=== PATIENT | male | born 1965 | race Caucasian/White ===

== ENCOUNTER 2024-03-30 02:31 | Inpatient (IN) ==
--- NOTE | 2024-03-30 02:52 | Emergency Department Note ---
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 Not eating and drinking well with nausea and vomiting. Initially some diarrhea but took Imodium and this is stopped. Does not eat much solid food and history of cancer and states he has had much less oral intake including less of the boost drinks he normally has. Maybe had a little bit of right kidney type pain earlier but that resolved. Went to stand up tonight felt very dizzy but did not fall. Did not syncopized but felt near. Given Zofran and route states maybe not so nauseous but he has not had anything to drink. Lives at home by himself. No numbness or tingling reported. Maybe a bit of mild headache. PAST MEDICAL HISTORY: As noted above MEDICATIONS: Reviewed home medications SOCIAL HISTORY: PHYSICAL EXAM: GENERAL: alert and oriented in no acute distress on stretcher Head: normocephalic and atraumatic EYES: No injection, discharge or icterus. EOMI. NECK: Trachea midline. Supple. ENT: Mucous membranes pink but somewhat tacky and dry with some slight swelling of the left lower jawline. No lingual elevation LUNGS: Airway patent. No retractions. Breath sounds clear with good air entry bilaterally. No stridor HEART: Regular tachycardic rate and rhythm. No chest wall tenderness ABDOMEN: Soft and non-tender, without guarding or rebound. No flank tenderness on exam SKIN: Acyanotic, warm, dry, without rashes EXTREMITIES: Without swelling, tenderness or deformity NEUROLOGICAL: No focal deficits. No aphasia. No facial droop or slurred speech. Normal strength and tone in the extremities. Sensation to gross touch normal. EK bpm sinus tachycardia. No PVC or PAC. No acute ST segment elevation or depression noted with a QTc of 467. EK bpm atrial fibrillation with rapid ventricular response. No acute ST segment elevation or depression. QTc 488. CONTINUOUS CARDIAC MONITORING: was ordered and showed a heart rate of 80s to 120s bpm in normal sinus rhythm/sinus tachycardia to atrial fibrillation 1 view chest x-ray per my interpretation: No evidence of pneumonia, pneumothorax, or free air under the diaphragm. Patient's laboratory studies and imaging reviewed. Differential includes Infection, dehydration, metabolic abnormality, hypo/hyperglycemia, electrolyte disturbance, anemia, hypoxia, cardiac sources, intracerebral event, toxicologic, neurologic, as well as other pathologies. IMPRESSION/MEDICAL DECISION MAKING: Patient's blood pressure low upon arrival as well as some tachycardia. Decreased intake and question dehydration given his GI symptoms and decreased intake. Limited intake due to history of SCC of the soft palate. Patient given some IV fluids here liter of LR and normal saline upon arrival given the hypotension. No fevers but blood cultures were sent. Not currently on active chemo. No fevers reported. No significant abdominal pain but did have a little bit of right flank pain earlier that has resolved and the intervening time. No significant focal hemiplegia or confusion and lower suspicion intracranial hemorrhage but given his comorbidities as well as some dizziness and mild headache will obtain a CT of the head as well as CT abdomen pelvis without contrast. [id number] blood work obtained showing significant hyponatremia of 122. Baseline creatinine appears around 1.1 seems about stable. Respiratory viral panel sent to see if there is component of this to his GI symptoms. No significant chest pain or shortness of breath reported but troponin and EKG were obtained. Blood work without significant leukocytosis and minimal anemia. No significant hyperkalemia noted. Lipase normal and no evidence of hepatitis. CT of the head and abdomen pelvis obtained without evidence of acute intercranial bleed or mass. No evidence of acute free air or severe hydronephrosis or kidney stone. Does incidentally note some pericardial effusion but patient's not having tamponade physiology at this time. Procalcitonin is elevated at 4.4 empirically covered with a dose of Zosyn. Blood cultures have been sent. Repeat EKG from telemetry arrhythmia appears to show atrial fibrillation. Patient states he may have had an arrhythmia before but not on anticoagulants. Do not see documented A-fib at least in our records. Will give vancomycin for broad-spectrum coverage. Given history of radiation does state he has some irritation and maybe a little bit increased pain to his left jaw. Could be source of some infection as well as ulceration provide coverage. Will defer anticoagulation to the hospitalist team. Fairly rate controlled plan will avoid aggressive rate control until we finish fluid resuscitating the patient with possible sepsis. Discussed with him as well as the hospitalist team. Patient did receive a total of 2 L of IV fluid. DIAGNOSIS: Hyponatremia, weakness, gastroenteritis, new onset atrial fibrillation, sepsis DISPOSITION: Hospitalist will evaluate Patient was agreeable with this plan. Critical Care I have personally spent 32 minutes of critical care time in the direct management of this patient. This includes bedside care, interpretation of diagnostic studies, and testing, discussion with consultants, patient, and other required patient management activities. These 32 minutes is in excess of all separately billable procedures. 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) Biopsy 07/15/23 Stomach ulcer Medical History (Updated 03/30/24 @ 04:21 by Sukhi Andino M.D.) Rectal abscess Rectal fistula Hypercholesteremia Hypertension Surgical History (Updated 09/07/23 @ 10:25 by Linda Tse RN) History of surgery Rectal fistual and perianal abscess - required 3 surgeries; History of tooth extraction History of wisdom tooth extraction History of tonsillectomy Family History (Updated 09/07/23 @ 10:28 by Linda Tse, RISHI) Sister Family history of reaction to anesthesia allergic to novacaine--causes irregular heartbeat Mother Pacemaker Chronic anticoagulation Cancer "Female cancer" Father , 86yo Natural with unknown cause Sister Medical history unknown Daughter No problems noted. Social History (Updated 09/07/23 @ 10:32 by Linda Tse RN) Smoking Status: Current every day smoker Tobacco Type: Cigarettes Cigarettes Per Day: 1 PPD x 40yrs; Second Hand Exposure: Yes (father smoked); Do You Dip or Chew Tobacco: No (quit 1981); Hx Alcohol Use: Yes Alcohol type: beer Hx Substance Use: No Preferred Language: Romansh Communication Ability: Effective Visual Impairment: No Limitations Hearing Ability: Normal Stonecutter Required: No Beliefs That Will Affect Care: None marital status: / current occupational status: retired Feels Safe at Home: Yes Diet: Soft Diet Comment: Soft/liquid diet due to dental extractions last week; caffeine: No during the past year weight has: remained stable Assistive Devices: Glasses Allergies Allergies Allergy/AdvReac Type Severity Reaction Status Date / Time pollen extracts Allergy Intermediate ITCHY Verified 03/30/24 02:44 EYES, SNEEZING Poison [place] Extract/Poison Allergy Severe "CAN BE 20 Uncoded 03/30/24 02:44 [place] Extra FEET AWAY AND STILL GET IT"-BLISTERS, HIVES Home Meds Home Medications Medication Instructions Recorded Confirmed atorvastatin 20 mg tablet 20 mg PO QPM 10/27/22 03/30/24 lisinopril 5 mg tablet 5 mg PO QAM 10/27/22 03/30/24 Results & Data (ED) Vital Signs Vital Signs - 24 hr 03/30/24 02:35 03/30/24 02:39 03/30/24 02:42 Temperature 36.5 C Temperature Source Oral Pulse Rate 110 H 109 H Pulse Rate [Apical] 109 H Respiratory Rate 16 19 Respiratory Effort / Characteristics Non-Labored Respiratory Depth Normal Respiratory Pattern Regular Blood Pressure 94/65 L Blood Pressure [Left Arm] 82/62 L Blood Pressure Mean 74 Blood Pressure Mean [Left Arm] 68 Pulse Oximetry 98 100 Oxygen Delivery Method Room Air Room Air Sepsis Recent Fever Within 48 Hours No Sepsis New/Unexplained Change in Mental Status No Sepsis Action Taken by Nursing No Action Required 03/30/24 04:00 03/30/24 05:00 03/30/24 05:15 Temperature Temperature Source Pulse Rate 100 H Pulse Rate [Apical] 104 H 98 H Respiratory Rate 16 20 Respiratory Effort / Characteristics Respiratory Depth Respiratory Pattern Blood Pressure Blood Pressure [Left Arm] 95/68 L 81/62 L Blood Pressure Mean Blood Pressure Mean [Left Arm] 77 68 Pulse Oximetry 100 96 Oxygen Delivery Method Room Air Room Air Sepsis Recent Fever Within 48 Hours Sepsis New/Unexplained Change in Mental Status Sepsis Action Taken by Nursing 03/30/24 05:34 03/30/24 06:00 03/30/24 06:35 Temperature Temperature Source Pulse Rate 101 H Pulse Rate [Apical] 103 H Respiratory Rate 15 Respiratory Effort / Characteristics Respiratory Depth Respiratory Pattern Blood Pressure Blood Pressure [Left Arm] 76/59 L 112/78 Blood Pressure Mean Blood Pressure Mean [Left Arm] 64 89 Pulse Oximetry 97 Oxygen Delivery Method Room Air Sepsis Recent Fever Within 48 Hours Sepsis New/Unexplained Change in Mental Status Sepsis Action Taken by Nursing Laboratory Data 03/30/24 03:08 03/30/24 06:30 Lab Results 0603/30/24 03/30/24 Range/Units 03:00 03:08 03:13 WBC 10.39 (4.8-10.8) K/ul RBC 3.36 L (4.70-6.10) M/uL Hgb 12.3 L (14.0-18.0) g/dl POC Hgb 12.2 L (14.0-18.0) g/dl Hct 33.5 L (42.0-52.0) % POC Hct 36 L (42-52) % MCV 99.7 (80.0-100.0) fL MCH 36.6 H (25.0-34.0) pg MCHC 36.7 H (32.0-36.0) g/dL RDW Std Deviation 39.5 (36.4-46.3) fL RDW Coeff of Linh 10.7 L (11.5-14.5) % Plt Count 256 (130-400) K/uL MPV 10.3 (9.4-12.4) fL Immature Gran % (Auto) 1.1 % Neut % (Auto) 78.7 % Lymph % (Auto) 5.2 % [place] % (Auto) 14.2 % Eos % (Auto) 0.3 % Baso % (Auto) 0.5 % Neut # (Auto) 8.18 H (1.40-6.50) K/uL Lymph # (Auto) 0.54 L (1.20-3.40) K/uL [place] # (Auto) 1.48 H (0.11-0.59) K/uL Eos # (Auto) 0.03 (0.00-0.50) K/uL Baso # (Auto) 0.05 (0.00-0.20) K/uL Immature Gran # (Auto) 0.11 (0.01-0.20) K/uL PT 11.6 (9.0-12.0) Seconds INR 1.1 (0.9-1.1) APTT 27 (21-31) Seconds PTT Ratio 1.0 POC Sodium 121 L (135-144) mmol/L Sodium 122 L (136-145) mmol/L POC Potassium 4.4 (3.3-5.0) mmol/L Potassium 3.9 (3.5-5.1) mmol/L POC Chloride 86 L (101-112) mmol/L Chloride 87 L (98-107) mmol/L Carbon Dioxide 26 (21-32) mmol/L POC Total CO2 27 (24-31) mmol/L Anion Gap 9 (3-11) POC Anion Gap 14.0 L (16-25) mmol/L POC BUN 17 (7-18) mg/dl BUN 15 (6-23) mg/dl Creatinine 1.29 (0.6-1.4) mg/dl POC Creatinine 1.4 H (0.6-1.3) mg/dl Est Cr Clr Drug Dosing 52.7 ml/min Est GFR ( Amer) 69.4 ml/min Est GFR (Non-Af Amer) 59.9 ml/min BUN/Creatinine Ratio 11.6 (10-20) Glucose 155 H (70-99(Fasting)) mg/dl POC Glucose (other) 144 H (70-99) mg/dl Osmolality 259 L (280-300) mOsm/kg Lactate 3.3 H* (0.4-2.0) mmol/L Calcium 9.1 (8.6-10.3) mg/dl POC Ioniz Calcium Edvin 1.00 L (1.12-1.32) mmol/l Magnesium 1.8 (1.7-2.4) mg/dl Total Bilirubin 0.7 (0.2-1.0) mg/dl AST 15 (13-39) U/L ALT 10 (7-52) U/L Alkaline Phosphatase 69 (34-104) U/L Troponin I High Sens 7.2 (0-20) pg/ml Total Protein 6.4 (6.0-8.3) gm/dl Albumin 3.4 (3.4-5.0) gm/dl Globulin 3.0 (2.5-4.0) gm/dl Albumin/Globulin Ratio 1.1 (0.9-2) Lipase 18 (11-82) U/L Procalcitonin 4.41 H (0-0.5) ng/ml TSH 2.942 (0.300-4.500) uIu/ml Urine Color Urine Appearance (Clear) Urine pH (4.5-7.5) Ur Specific [place] (1.000-1.030) Urine Protein (Negative) Urine Glucose (UA) (Negative) Urine Ketones (Negative) Urine Blood (Negative) Urine Nitrite (Negative) Urine Bilirubin (Negative) Urine Urobilinogen (Negative) Ur Leukocyte Esterase (Negative) Urine Osmolality (500-800) mOsm/kg Ur Random Sodium mmol/L Adenovirus (PCR) Not Detected (NotDetected) B. pertussis DNA (PCR) Not Detected (NotDetected) B.parapertussis DNA PCR Not Detected (NotDetected) C. pneumoniae DNA (PCR) Not Detected (NotDetected) Coronavirus OC43 (PCR) Not Detected (NotDetected) Coronavirus HKU1 (PCR) Not Detected (NotDetected) Coronavirus 229E (PCR) Not Detected (NotDetected) SARS-CoV-2 (PCR) Not Detected (NotDetected) Coronavirus NL63 (PCR) Not Detected (NotDetected) Human Metapneumovir PCR Not Detected (NotDetected) Influenza Type A (PCR) Not Detected (NotDetected) Influenza Type B (PCR) Not Detected (NotDetected) M. pneumoniae (PCR) Not Detected (NotDetected) Parainfluenza 1 (PCR) Not Detected (NotDetected) Parainfluenza 2 (PCR) Not Detected (NotDetected) Parainfluenza 3 (PCR) Not Detected (NotDetected) Parainfluenza 4 (PCR) Not Detected (NotDetected) RSV (PCR) Not Detected (NotDetected) Entero/Rhino (PCR) Not Detected (NotDetected) 03/30/24 03/30/24 Range/Units 05:59 06:30 WBC (4.8-10.8) K/ul RBC (4.70-6.10) M/uL Hgb (14.0-18.0) g/dl POC Hgb (14.0-18.0) g/dl Hct (42.0-52.0) % POC Hct (42-52) % MCV (80.0-100.0) fL MCH (25.0-34.0) pg MCHC (32.0-36.0) g/dL RDW Std Deviation (36.4-46.3) fL RDW Coeff of Linh (11.5-14.5) % Plt Count (130-400) K/uL MPV (9.4-12.4) fL Immature Gran % (Auto) % Neut % (Auto) % Lymph % (Auto) % [place] % (Auto) % Eos % (Auto) % Baso % (Auto) % Neut # (Auto) (1.40-6.50) K/uL Lymph # (Auto) (1.20-3.40) K/uL [place] # (Auto) (0.11-0.59) K/uL Eos # (Auto) (0.00-0.50) K/uL Baso # (Auto) (0.00-0.20) K/uL Immature Gran # (Auto) (0.01-0.20) K/uL PT (9.0-12.0) Seconds INR (0.9-1.1) APTT (21-31) Seconds PTT Ratio POC Sodium (135-144) mmol/L Sodium 127 L (136-145) mmol/L POC Potassium (3.3-5.0) mmol/L Potassium (3.5-5.1) mmol/L POC Chloride (101-112) mmol/L Chloride (98-107) mmol/L Carbon Dioxide (21-32) mmol/L POC Total CO2 (24-31) mmol/L Anion Gap (3-11) POC Anion Gap (16-25) mmol/L POC BUN (7-18) mg/dl BUN (6-23) mg/dl Creatinine (0.6-1.4) mg/dl POC Creatinine (0.6-1.3) mg/dl Est Cr Clr Drug Dosing ml/min Est GFR ( Amer) ml/min Est GFR (Non-Af Amer) ml/min BUN/Creatinine Ratio (10-20) Glucose (70-99(Fasting)) mg/dl POC Glucose (other) (70-99) mg/dl Osmolality (280-300) mOsm/kg Lactate 1.9 (0.4-2.0) mmol/L Calcium (8.6-10.3) mg/dl POC Ioniz Calcium Edvin (1.12-1.32) mmol/l Magnesium (1.7-2.4) mg/dl Total Bilirubin (0.2-1.0) mg/dl AST (13-39) U/L ALT (7-52) U/L Alkaline Phosphatase (34-104) U/L Troponin I High Sens (0-20) pg/ml Total Protein (6.0-8.3) gm/dl Albumin (3.4-5.0) gm/dl Globulin (2.5-4.0) gm/dl Albumin/Globulin Ratio (0.9-2) Lipase (11-82) U/L Procalcitonin (0-0.5) ng/ml TSH (0.300-4.500) uIu/ml Urine Color Yellow Urine Appearance Clear (Clear) Urine pH 6.0 (4.5-7.5) Ur Specific [place] 1.009 (1.000-1.030) Urine Protein Negative (Negative) Urine Glucose (UA) Negative (Negative) Urine Ketones Negative (Negative) Urine Blood Negative (Negative) Urine Nitrite Negative (Negative) Urine Bilirubin Negative (Negative) Urine Urobilinogen Negative (Negative) Ur Leukocyte Esterase Negative (Negative) Urine Osmolality 167 L (500-800) mOsm/kg Ur Random Sodium < 10 mmol/L Adenovirus (PCR) (NotDetected) B. pertussis DNA (PCR) (NotDetected) B.parapertussis DNA PCR (NotDetected) C. pneumoniae DNA (PCR) (NotDetected) Coronavirus OC43 (PCR) (NotDetected) Coronavirus HKU1 (PCR) (NotDetected) Coronavirus 229E (PCR) (NotDetected) SARS-CoV-2 (PCR) (NotDetected) Coronavirus NL63 (PCR) (NotDetected) Human Metapneumovir PCR (NotDetected) Influenza Type A (PCR) (NotDetected) Influenza Type B (PCR) (NotDetected) M. pneumoniae (PCR) (NotDetected) Parainfluenza 1 (PCR) (NotDetected) Parainfluenza 2 (PCR) (NotDetected) Parainfluenza 3 (PCR) (NotDetected) Parainfluenza 4 (PCR) (NotDetected) RSV (PCR) (NotDetected) Entero/Rhino (PCR) (NotDetected) Administered Medications Magnesium Sulfate/Dextrose (Magnesium Sulfate / D5w) 1 gm in 100 mls @ 50 mls/hr IV ONE ONE Stop: 03/30/24 08:18 Last Admin: 03/30/24 06:38 Dose: 50 mls/hr Documented By: BOO Discontinued Medications Moyer Syrup (Moyer Syrup 5 Ml Udp) 5 ml PO ONE STA Stop: 03/30/24 06:04 Last Admin: 03/30/24 06:28 Dose: 5 ml Documented By: BOO Sodium Chloride (Nss) 1,000 mls @ 999 mls/hr IV .Q1H1M STA Stop: 03/30/24 03:47 Last Infusion: 03/30/24 04:10 Dose: Infused Documented By: Admin: 03/30/24 03:04 Dose: 999 mls/hr Documented By: BOO Lactated Ringer's (Lr) 1,000 mls @ 999 mls/hr IV .Q1H1M ONE Stop: 03/30/24 03:47 Last Infusion: 03/30/24 04:43 Dose: Infused Documented By: Admin: 03/30/24 03:04 Dose: 999 mls/hr Documented By: BOO Piperacillin Sod/Tazobactam Sod (Zosyn) 4.5 gm in 100 mls @ 200 mls/hr IV NOW ONE Stop: 03/30/24 04:21 Last Infusion: 03/30/24 04:43 Dose: Infused Documented By: Infusion: 03/30/24 04:38 Dose: Infused Documented By: Admin: 03/30/24 04:10 Dose: 200 mls/hr Documented By: BOO Vancomycin HCl 1,250 mg/ (Sodium Chloride) 525 mls @ 200 mls/hr IV NOW ONE Stop: 03/30/24 06:53 Last Admin: 03/30/24 06:28 Dose: 200 mls/hr Documented By: BOO Digoxin 250 mcg/ Syringe 10 mls @ 2 mls/min IV NOW STA Stop: 03/30/24 04:44 Last Admin: 03/30/24 05:15 Dose: 2 mls/min Documented By: BOO Thiamine HCl 100 mg/ Syringe 10 mls @ 2 mls/min IV NOW STA Stop: 03/30/24 04:44 Last Admin: 03/30/24 05:15 Dose: 2 mls/min Documented By: BOO Lactated Ringer's (Lr) 1,000 mls @ 500 mls/hr IV .Q2H ONE Stop: 03/30/24 06:32 Last Infusion: 03/30/24 05:25 Dose: 500 mls/hr Documented By: Admin: 03/30/24 04:43 Dose: 100 mls/hr Documented By: BOO Vancomycin HCl (Vancomycin Hcl 125 Mg/2.5ml Soln) 125 mg PO ONE STA Stop: 03/30/24 06:04 Last Admin: 03/30/24 06:28 Dose: 125 mg Documented By: BOO Imaging Data Radiologist's Impression: Head CT 03/30/24 02:47 Exam(s): CT HEAD Without Contrast EXAM: CT Head Without Intravenous Contrast CLINICAL HISTORY: Reason for exam: dizzy. TECHNIQUE: Axial computed tomography images of the head/brain without intravenous contrast. CTDI is 35.51 mGy and DLP is 1215.01 mGy-cm. Automated exposure control was utilized for the study. A dose lowering technique was utilized adhering to the principles of ALARA. COMPARISON: No relevant prior studies available. FINDINGS: Brain: Remote ischemic injury of the lennox. Remote ischemic injury of the right thalamus. No hemorrhage. Mild nonspecific white matter changes. No edema. Ventricles: Unremarkable. No ventriculomegaly. Bones/joints: Unremarkable. No acute fracture. Soft tissues: Unremarkable. Sinuses: Unremarkable as visualized. No acute sinusitis. Mastoid air cells: Unremarkable as visualized. No mastoid effusion. IMPRESSION: No evidence of acute intracranial pathology. Electronically signed by: Tiara Rios MD 03/30/24 05:57 AM Discharge Plan Visit Data Chief Complaint: Dehydration Stated Complaint: ILLNESS ED Provider: Sukhi Andino Discharge Problem: Acute hyponatremia, Weakness, Dizziness, Sepsis, A-fib Patient Disposition: Being Evaluated by Hospitalist Forms Stand Alone Forms: [employer] [facility] Prescriptions Prescriptions: No Action atorvastatin 20 mg tablet 20 mg PO QPM lisinopril 5 mg tablet 5 mg PO QAM Referrals Referrals: Mary Kapadia PA-C [Primary Care Provider] -
[2024-03-30] MEDS: LACTATED RINGER'S 1,000 ML IV ONE ×3 (03:04→12:35)
[2024-03-30] MEDS: SODIUM CHLORIDE 0.9% 1,000 ML IV STA (03:04)
[2024-03-30 03:27] LABS: iSTAT Creatinine 1.4 mg/dl (0.6-1.3); iSTAT Hemoglobin 12.2 g/dl (14.0-18.0); iSTAT Potassium 4.4 mmol/L (3.3-5.0)
[2024-03-30 03:31] LABS: Basophils # (auto) 0.05 K/uL (0.00-0.20); Basophils % (auto) 0.5 %; Eosinophils # (auto) 0.03 K/uL (0.00-0.50); Eosinophils % (auto) 0.3 %; Hematocrit (blood only) 33.5 % (42.0-52.0); Hemoglobin 12.3 g/dl (14.0-18.0); Immature Granulocytes # (auto) 0.11 K/uL (0.01-0.20); Immature Granulocytes % (auto) 1.1 %; Lymphocytes # (auto) 0.54 K/uL (1.20-3.40); Lymphocytes % (auto) 5.2 %; Mean Corpuscular Hemoglobin 36.6 pg (25.0-34.0); Mean Corpuscular Hgb Conc 36.7 g/dL (32.0-36.0); Mean Corpuscular Volume 99.7 fL (80.0-100.0); Mean Platelet Volume 10.3 fL (9.4-12.4); Monocytes # (auto) 1.48 K/uL (0.11-0.59); Monocytes % (auto) 14.2 %; Neutrophils # (auto) 8.18 K/uL (1.40-6.50); Neutrophils % (auto) 78.7 %; Platelet Count 256 K/uL (130-400); RDW Coefficient of Variation 10.7 % (11.5-14.5); RDW Standard Deviation 39.5 fL (36.4-46.3); Red Blood Count 3.36 M/uL (4.70-6.10); White Blood Count 10.39 K/ul (4.8-10.8)
[2024-03-30 03:41] LABS: Albumin Globulin Ratio 1.1 (0.9-2); Albumin Level 3.4 gm/dl (3.4-5.0); BUN Creatinine Ratio 11.6 (10-20); Bilirubin,Total 0.7 mg/dl (0.2-1.0); Calcium 9.1 mg/dl (8.6-10.3); Creatinine Clr Calc Pharmacy 52.7 ml/min; Est GFR (African American) 69.4 ml/min; Est GFR (Non-African American) 59.9 ml/min; Potassium 3.9 mmol/L (3.5-5.1); Total Protein 6.4 gm/dl (6.0-8.3)
[2024-03-30 03:47] LABS: Troponin I High Sensitivity 7.2 pg/ml (0-20)
[2024-03-30 03:50] LABS: INR 1.1 (0.9-1.1); Prothrombin Time 11.6 Seconds (9.0-12.0)
[2024-03-30 04:10] LABS: Adenovirus PCR Not Detected (NotDetected); Bordetella parapertussis PCR Not Detected (NotDetected); Bordetella pertussis PCR Not Detected (NotDetected); Chlamydia pneumoniae PCR Not Detected (NotDetected); Coronavirus 229E PCR Not Detected (NotDetected); Coronavirus CoV-2 (COVID19)PCR Not Detected (NotDetected); Coronavirus HKU1 PCR Not Detected (NotDetected); Coronavirus NL63 PCR Not Detected (NotDetected); Coronavirus OC43PCR Not Detected (NotDetected); Human Metapneumovirus PCR Not Detected (NotDetected); Influenza A PCR Not Detected (NotDetected); Influenza B PCR Not Detected (NotDetected); Mycoplasma pneumoniae PCR Not Detected (NotDetected); Parainfluenza Virus 1 PCR Not Detected (NotDetected); Parainfluenza Virus 2 PCR Not Detected (NotDetected); Parainfluenza Virus 3 PCR Not Detected (NotDetected); Parainfluenza Virus 4 PCR Not Detected (NotDetected); Respiratory Syncytial VirusPCR Not Detected (NotDetected); Rhinovirus/Enterovirus PCR Not Detected (NotDetected)
[2024-03-30] MEDS: PIPERACILLIN/TAZOBACTAM 4.5 GM/100 ML BAG IV ONE (04:10)
[2024-03-30] MEDS ORDERED: VANCOMYCIN CONSULT ACTIVE PRN (04:16)
[2024-03-30 04:47] LABS: Magnesium 1.8 mg/dl (1.7-2.4)
[2024-03-30 04:50] LABS: Partial Thromboplastin Time 27 Seconds (21-31)
[2024-03-30 05:03] LABS: Thyroid Stimulating Hormone 2.942 uIu/ml (0.300-4.500)
[2024-03-30] MEDS: THIAMINE HCL 100 MG in SYRINGE 9 ML IV STA (05:15)
[2024-03-30] MEDS: DIGOXIN 250 MCG in SYRINGE 9 ML IV STA (05:15)
--- NOTE | 2024-03-30 05:58 | CT Scan Report ---
Exam(s): CT HEAD Without Contrast EXAM: CT Head Without Intravenous Contrast CLINICAL HISTORY: Reason for exam: dizzy. TECHNIQUE: Axial computed tomography images of the head/brain without intravenous contrast. CTDI is 35.51 mGy and DLP is 1215.01 mGy-cm. Automated exposure control was utilized for the study. A dose lowering technique was utilized adhering to the principles of ALARA. COMPARISON: No relevant prior studies available. FINDINGS: Brain: Remote ischemic injury of the lennox. Remote ischemic injury of the right thalamus. No hemorrhage. Mild nonspecific white matter changes. No edema. Ventricles: Unremarkable. No ventriculomegaly. Bones/joints: Unremarkable. No acute fracture. Soft tissues: Unremarkable. Sinuses: Unremarkable as visualized. No acute sinusitis. Mastoid air cells: Unremarkable as visualized. No mastoid effusion. IMPRESSION: No evidence of acute intracranial pathology. Electronically signed by: Tiara Rios MD 03/30/24 05:57 AM
--- NOTE | 2024-03-30 06:03 | History & Physical Report ---
Date of Service March 30, 2024 Assessment & Plan (1) Severe sepsis: Plan: SIRS plus ARF plus lactic acidosis Possible sources: Intra-abdominal Diarrhea rule out C. difficile Oral cavity given worsening left jaw pain complaints, hx oropharyngeal cancer ongoing chemoradiation New onset A-fib secondary to illness Acute on chronic hyponatremia secondary to illness, alcohol abuse contributory hyperlipidemia, on statin Rx history of anal fistula/rectal abscess as per records chronic anemia, hemoglobin better than baseline secondary to hemoconcentration Hyperglycemia rule out DM past tobacco abuse PCU CS, Daptomycin, Zosyn Follow CT abdomen pelvis result CT soft tissue neck RE left jaw pain N.p.o. until CT results available Stool C. difficile, oral vancomycin 1 dose for presumptive C. difficile given sepsis criteria Baseline UA, monitor creatinine, lactic acid response to IVF Appropriate to hold home lisinopril for now given hypotension and kidney dysfunction Digoxin 1 dose now for new onset A-fib given hypotension TTE, Cardiology consult Re: New onset A-fib Hyponatremia workup AD S at risk protocol, DT precautions Check hemoglobin A1c DVT prophylaxis. SCDs until CT results available Full code Text document was generated using Pl[employer] voice recognition software. It may contain grammatical or spelling errors. Kindly contact undersigned for clarification of any documentation item in question. History of Present Illness Chief Complaint: Weakness, diarrhea Primary Care Provider: Mary Kapadia PA-C History obtained from patient and records. Medical history significant for hypertension, hyperlipidemia, history of anal fistula/rectal abscess, oropharyngeal cancer ongoing chemoradiation, chronic hyponatremia, chronic anemia (baseline hemoglobin of 10), alcohol abuse, past tobacco abuse. 10-day history of not feeling well, feeling sick, achy abdominal pain with watery diarrhea. Increased left jaw pain more than usual. No chest pain, no SOB, no cough symptoms. Near syncope at home. Lowest SBP of 70s documented at the ER. Rapid A-fib later noted on the monitor. 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 Allergies Allergy/AdvReac Type Severity Reaction Status Date / Time pollen extracts Allergy Intermediate ITCHY Verified 03/30/24 02:44 EYES, SNEEZING Poison [place] Extract/Poison Allergy Severe "CAN BE 20 Uncoded 03/30/24 02:44 [place] Extra FEET AWAY AND STILL GET IT"-BLISTERS, HIVES Home Medications Medication Instructions Recorded Confirmed Type atorvastatin 20 mg tablet 20 mg PO QPM 10/27/22 03/30/24 History lisinopril 5 mg tablet 5 mg PO QAM 10/27/22 03/30/24 History Past Med/Surg History Problem List (Updated 03/30/24 @ 09:18 by Eduard Patterson DO) Volume depletion Near syncope Paroxysmal atrial fibrillation Pericardial effusion Severe sepsis A-fib (Acute) Sepsis (Acute) Dizziness (Acute) Weakness (Acute) Acute hyponatremia (Acute) 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 Required: No Beliefs That Will Affect Care: None marital status: / current occupational status: retired Feels Safe at Home: Yes Diet: Soft Diet Comment: Soft/liquid diet due to dental extractions last week; caffeine: No during the past year weight has: remained stable Assistive Devices: Glasses Review of Systems Review of Systems: As per HPI, all other systems reviewed and negative Physical Exam Physical Exam: GENERAL: Slightly uncomfortable, chronically ill, no respiratory distress SKIN: Pallor, warm HEENT: Pale palpebral conjunctivae, no ptosis, dry buccal mucosa, tenderness left jaw NECK : Supple, no tenderness CHEST : Decreased breath sounds, no tenderness HEART : Irregular, no obvious murmurs ABDOMEN: Some distention, minimal hypogastric tenderness EXTREMITIES : No LE swelling/tenderness, no other conspicuous deformities noted NEUROLOGIC : Coherent, no facial asymmetry, no other gross focality Results & Data Results & Data Vital Signs (Past 12 Hours) Vital Signs Temp Pulse Pulse Resp BP BP Pulse Ox 03/30/24 05:34 76/59 L 03/30/24 05:15 100 H 03/30/24 05:00 98 H 20 81/62 L 96 03/30/24 04:00 104 H 16 95/68 L 100 03/30/24 02:42 109 H 03/30/24 02:39 109 H 19 82/62 L 100 03/30/24 02:35 36.5 C 110 H 16 94/65 L 98 O2 Del Method 03/30/24 05:34 03/30/24 05:15 03/30/24 05:00 Room Air 03/30/24 04:00 Room Air 03/30/24 02:42 03/30/24 02:39 Room Air 03/30/24 02:35 Room Air Laboratory Results Laboratory Results WBC 10.39 K/ul (4.8-10.8) 03/30/24 03:08 RBC 3.36 M/uL (4.70-6.10) L 03/30/24 03:08 Hgb 12.3 g/dl (14.0-18.0) L 03/30/24 03:08 POC Hgb 12.2 g/dl (14.0-18.0) L 03/30/24 03:13 Hct 33.5 % (42.0-52.0) L 03/30/24 03:08 POC Hct 36 % (42-52) L 03/30/24 03:13 MCV 99.7 fL (80.0-100.0) 03/30/24 03:08 MCH 36.6 pg (25.0-34.0) H 03/30/24 03:08 MCHC 36.7 g/dL (32.0-36.0) H 03/30/24 03:08 RDW Std Deviation 39.5 fL (36.4-46.3) 03/30/24 03:08 RDW Coeff of Linh 10.7 % (11.5-14.5) L 03/30/24 03:08 Plt Count 256 K/uL (130-400) 03/30/24 03:08 MPV 10.3 fL (9.4-12.4) 03/30/24 03:08 Immature Gran % (Auto) 1.1 % 03/30/24 03:08 Neut % (Auto) 78.7 % 03/30/24 03:08 Lymph % (Auto) 5.2 % 03/30/24 03:08 [place] % (Auto) 14.2 % 03/30/24 03:08 Eos % (Auto) 0.3 % 03/30/24 03:08 Baso % (Auto) 0.5 % 03/30/24 03:08 Neut # (Auto) 8.18 K/uL (1.40-6.50) H 03/30/24 03:08 Lymph # (Auto) 0.54 K/uL (1.20-3.40) L 03/30/24 03:08 [place] # (Auto) 1.48 K/uL (0.11-0.59) H 03/30/24 03:08 Eos # (Auto) 0.03 K/uL (0.00-0.50) 03/30/24 03:08 Baso # (Auto) 0.05 K/uL (0.00-0.20) 03/30/24 03:08 Immature Gran # (Auto) 0.11 K/uL (0.01-0.20) 03/30/24 03:08 PT 11.6 Seconds (9.0-12.0) 03/30/24 03:08 INR 1.1 (0.9-1.1) 03/30/24 03:08 APTT 27 Seconds (21-31) 03/30/24 03:08 PTT Ratio 1.0 03/30/24 03:08 POC Sodium 121 mmol/L (135-144) L 03/30/24 03:13 Sodium 122 mmol/L (136-145) L 03/30/24 03:08 POC Potassium 4.4 mmol/L (3.3-5.0) 03/30/24 03:13 Potassium 3.9 mmol/L (3.5-5.1) 03/30/24 03:08 POC Chloride 86 mmol/L (101-112) L 03/30/24 03:13 Chloride 87 mmol/L (98-107) L 03/30/24 03:08 Carbon Dioxide 26 mmol/L (21-32) 03/30/24 03:08 POC Total CO2 27 mmol/L (24-31) 03/30/24 03:13 Anion Gap 9 (3-11) 03/30/24 03:08 POC Anion Gap 14.0 mmol/L (16-25) L 03/30/24 03:13 POC BUN 17 mg/dl (7-18) 03/30/24 03:13 BUN 15 mg/dl (6-23) 03/30/24 03:08 Creatinine 1.29 mg/dl (0.6-1.4) 03/30/24 03:08 POC Creatinine 1.4 mg/dl (0.6-1.3) H 03/30/24 03:13 Est Cr Clr Drug Dosing 52.7 ml/min 03/30/24 03:08 Est GFR ( Amer) 69.4 ml/min 03/30/24 03:08 Est GFR (Non-Af Amer) 59.9 ml/min 03/30/24 03:08 BUN/Creatinine Ratio 11.6 (10-20) 03/30/24 03:08 Glucose 155 mg/dl (70-99(Fasting)) H 03/30/24 03:08 POC Glucose (other) 144 mg/dl (70-99) H 03/30/24 03:13 Osmolality 259 mOsm/kg (280-300) L 03/30/24 03:08 Lactate 3.3 mmol/L (0.4-2.0) H* 03/30/24 03:08 Calcium 9.1 mg/dl (8.6-10.3) 03/30/24 03:08 POC Ioniz Calcium Edvin 1.00 mmol/l (1.12-1.32) L 03/30/24 03:13 Magnesium 1.8 mg/dl (1.7-2.4) 03/30/24 03:08 Total Bilirubin 0.7 mg/dl (0.2-1.0) 03/30/24 03:08 AST 15 U/L (13-39) 03/30/24 03:08 ALT 10 U/L (7-52) 03/30/24 03:08 Alkaline Phosphatase 69 U/L (34-104) 03/30/24 03:08 Troponin I High Sens 7.2 pg/ml (0-20) 03/30/24 03:08 Total Protein 6.4 gm/dl (6.0-8.3) 03/30/24 03:08 Albumin 3.4 gm/dl (3.4-5.0) 03/30/24 03:08 Globulin 3.0 gm/dl (2.5-4.0) 03/30/24 03:08 Albumin/Globulin Ratio 1.1 (0.9-2) 03/30/24 03:08 Lipase 18 U/L (11-82) 03/30/24 03:08 Procalcitonin 4.41 ng/ml (0-0.5) H 03/30/24 03:08 TSH 2.942 uIu/ml (0.300-4.500) 03/30/24 03:08 Adenovirus (PCR) Not Detected (NotDetected) 03/30/24 03:00 B. pertussis DNA (PCR) Not Detected (NotDetected) 03/30/24 03:00 B.parapertussis DNA PCR Not Detected (NotDetected) 03/30/24 03:00 C. pneumoniae DNA (PCR) Not Detected (NotDetected) 03/30/24 03:00 Coronavirus OC43 (PCR) Not Detected (NotDetected) 03/30/24 03:00 Coronavirus HKU1 (PCR) Not Detected (NotDetected) 03/30/24 03:00 Coronavirus 229E (PCR) Not Detected (NotDetected) 03/30/24 03:00 SARS-CoV-2 (PCR) Not Detected (NotDetected) 03/30/24 03:00 Coronavirus NL63 (PCR) Not Detected (NotDetected) 03/30/24 03:00 Human Metapneumovir PCR Not Detected (NotDetected) 03/30/24 03:00 Influenza Type A (PCR) Not Detected (NotDetected) 03/30/24 03:00 Influenza Type B (PCR) Not Detected (NotDetected) 03/30/24 03:00 M. pneumoniae (PCR) Not Detected (NotDetected) 03/30/24 03:00 Parainfluenza 1 (PCR) Not Detected (NotDetected) 03/30/24 03:00 Parainfluenza 2 (PCR) Not Detected (NotDetected) 03/30/24 03:00 Parainfluenza 3 (PCR) Not Detected (NotDetected) 03/30/24 03:00 Parainfluenza 4 (PCR) Not Detected (NotDetected) 03/30/24 03:00 RSV (PCR) Not Detected (NotDetected) 03/30/24 03:00 Entero/Rhino (PCR) Not Detected (NotDetected) 03/30/24 03:[address] 03/30/24 02:47 Exam(s): CT HEAD Without Contrast EXAM: CT Head Without Intravenous Contrast CLINICAL HISTORY: Reason for exam: dizzy. TECHNIQUE: Axial computed tomography images of the head/brain without intravenous contrast. CTDI is 35.51 mGy and DLP is 1215.01 mGy-cm. Automated exposure control was utilized for the study. A dose lowering technique was utilized adhering to the principles of ALARA. COMPARISON: No relevant prior studies available. FINDINGS: Brain: Remote ischemic injury of the lennox. Remote ischemic injury of the right thalamus. No hemorrhage. Mild nonspecific white matter changes. No edema. Ventricles: Unremarkable. No ventriculomegaly. Bones/joints: Unremarkable. No acute fracture. Soft tissues: Unremarkable. Sinuses: Unremarkable as visualized. No acute sinusitis. Mastoid air cells: Unremarkable as visualized. No mastoid effusion. IMPRESSION: No evidence of acute intracranial pathology. Electronically signed by: Tiara Rios MD 03/30/24 05:57 AM Diagnostic Findings Chest x-ray as per my interpretation cardiomegaly EKG as per my interpretation : Rate 105, A-fib, normal axis, nonspecific T wave abnormalities, low voltage, PVCs
[2024-03-30] MEDS ORDERED: PROMETHAZINE HCL 6.25 MG in SODIUM CHLORIDE 0.9% 50 ML IV PRN (06:19)
[2024-03-30] MEDS ORDERED: LORazepam 1 MG in SYRINGE 0.5 ML IV PRN (06:19)
[2024-03-30] MEDS ORDERED: oxyCODONE HCL IR 5 MG TAB (IMMEDIATE RELEASE) PO PRN (06:19)
[2024-03-30 06:21] LABS: Appearance Urine Clear (Clear); Bilirubin Urine Negative (Negative); Blood Urine Negative (Negative); Color Urine Yellow; Glucose Urine UA Negative (Negative); Ketones Urine Negative (Negative); Leukocyte Esterase Urine Negative (Negative); Nitrite Urine Negative (Negative); Protein Urine Negative (Negative); Specific Gravity Urine 1.009 (1.000-1.030); Urobilinogen Urine Negative (Negative)
[2024-03-30] MEDS: VANCOMYCIN HCL 125 MG/2.5ML SOLN PO STA (06:28)
[2024-03-30] MEDS: VANCOMYCIN HCL 1,250 MG in SODIUM CHLORIDE 0.9% 500 ML IV ONE (06:28)
[2024-03-30] MEDS: CHERRY SYRUP 5 ML UDP PO STA (06:28)
[2024-03-30] MEDS: MAGNESIUM SULFATE / D5W 1 GM/100 ML BAG IV ONE (06:38)
--- NOTE | 2024-03-30 07:06 | CT Scan Report ---
Exam(s): CT ABDOMEN + PELVIS Without Contrast EXAM: CT Abdomen and Pelvis Without Intravenous Contrast CLINICAL HISTORY: Reason for exam: weak, R flank pain, nausea. TECHNIQUE: Axial computed tomography images of the abdomen and pelvis without intravenous contrast. CTDI is 35.51 mGy and DLP is 1215.01 mGy-cm. Automated exposure control was utilized for the study. A dose lowering technique was utilized adhering to the principles of ALARA. COMPARISON: No relevant prior studies available. FINDINGS: Lung bases: Segmental size region of atelectasis/infiltrate within the bilateral lower lobes greater on the left side. Pleural space: There is small to moderate left pleural effusion. Heart: There is moderate to large pericardial effusion. ABDOMEN: Liver: Unremarkable. Gallbladder and bile ducts: Unremarkable. No calcified stones. No ductal dilation. Pancreas: Unremarkable. No ductal dilation. Spleen: Unremarkable. No splenomegaly. Adrenals: Unremarkable. No mass. Kidneys and ureters: Unremarkable. No obstructing stones. No hydronephrosis. Stomach and bowel: There apparent postsurgical changes to the distal colon. No obstruction. No mucosal thickening. PELVIS: Appendix: No findings to suggest acute appendicitis. Bladder: Unremarkable. No stones. Reproductive: Unremarkable as visualized. ABDOMEN and PELVIS: Intraperitoneal space: Unremarkable. No free air. No significant fluid collection. Bones/joints: There are degenerative changes to the osseous structures. No acute fracture. No dislocation. Soft tissues: Unremarkable. Vasculature: Unremarkable. No abdominal aortic aneurysm. Lymph nodes: Unremarkable. No enlarged lymph nodes. IMPRESSION: Pericardial effusion and left pleural effusion. Communications: Verify Receipt Electronically signed by: Avila Pyle MD 03/30/24 07:06 AM
--- NOTE | 2024-03-30 07:59 | XRay Report ---
SINGLE VIEW CHEST CLINICAL HISTORY: Generalized weakness. Nausea and dizziness. FINDINGS: An AP, portable, upright chest radiograph is compared to study dated 10/27/2022. Correlation is made with abdominal CT performed the same day 03/30/2024. The cardiac silhouette is enlarged. The pulmonary vasculature is noncongested. There are small pleural effusions with dependent atelectasis. No airspace consolidation is seen typical for pneumonia. No pneumothorax is seen. The bony thorax is grossly intact. IMPRESSION: 1. Enlarged cardiac silhouette. This corresponds to a pericardial effusion when correlated with today 's CT scan. The pericardium appears thickened on CT. Correlate clinically for evidence of pericarditi s. 2. Small pleural effusions with dependent atelectasis. ACT 112: Negative or not required by law. Electronically signed by: Paul Mariano M.D. 03/30/2024 7:58 AM
[2024-03-30 08:06] LABS: Estimated Average Glucose 111 mg/dl; Hemoglobin A1C 5.5 % (4.5-5.6)
--- NOTE | 2024-03-30 09:13 | CT Scan Report ---
CT SCAN OF THE NECK WITHOUT IV CONTRAST CLINICAL HISTORY: Left-sided jaw pain COMPARISON STUDY: CT of the neck dated 07/27/2023. TECHNIQUE: Unenhanced CT scan of the soft tissues of the neck was performed from the skull base to th e upper chest. Images are reviewed in the axial, sagittal, and coronal planes. IV contrast was not a dministered as per the referring clinician. Note that the examination was performed and significantly suboptimal fashion without IV contrast. A dose lowering technique was utilized adhering to the prin ciples of ALARA. FINDINGS: Pharynx: The unenhanced radial soft tissues are grossly normal in appearance. The pharyngeal airway i s widely patent. There is no evidence of mass lesion. The vocal cords are symmetric. The parapharynge al fat is well maintained. The prevertebral/retropharyngeal soft tissues are within normal limits. Th e epiglottis is normal. Lymphadenopathy: No cervical lymphadenopathy is seen Thyroid: Normal in size and attenuation. Salivary glands: The parotid and submandibular glands are within normal limits. Brain parenchyma: The visualized brain parenchyma at the skull base is normal in appearance. Skeletal structures: The skeletal structures are osteopenic. Imaged portions of the calvarium at the skull base are within normal limits. The cervical spine appears intact noting multilevel spondylosis. Mild degenerative change is noted in the temporomandibular joints. Orbits: The bony orbits are intact. Orbital contents are normal as visualized. Sinuses and mastoids: There is moderate mucosal thickening in the left sphenoid sinus. Trace mucosal thickening is noted in the ethmoid sinuses. The remaining paranasal sinuses are clear. Selective effu sions are seen bilaterally. Cerumen fills the right external auditory canal. Lung apices: Emphysematous change is seen at the apices. Visualized apical lung parenchyma is otherwi se clear. Soft tissues: Gas within the left jugular veins is likely related to IV placement. There is atheroscl erotic calcification of the carotid bulbs. IMPRESSION: 1. No acute abnormality is identified. 2. Emphysema. 3. Additional findings as above. ACT 112: Negative or not required by law. Electronically signed by: Paul Mariano M.D. 03/30/2024 9:11 AM
--- NOTE | 2024-03-30 09:22 | Cardiology Consultation ---
Date of Consultation March 30, 2024 Assessment & Plan (1) Pericardial effusion: (2) Paroxysmal atrial fibrillation: (3) Near syncope: (4) Volume depletion: (5) Acute hyponatremia: Plan 58-year-old male presents with weakness, near syncope, and volume depletion. Echocardiogram with evidence of large circumferential pericardial effusion and early tamponade physiology. Will discuss further with interventional cardiology to consider pericardiocentesis. Transient paroxysmal atrial fibrillation on admission. Currently sinus rhythm. Unable to add beta-marlin due to borderline hypotension. Continue hydration and electrolyte replacement. Potential reversible causes include pericardial effusion and sepsis. Will not add anticoagulation due to pending procedure. Echocardiogram demonstrates preserved LV function without significant valvular pathology. I spent a total of 60 minutes on the date of service in preparation, delivery, and documentation of the care provided to this patient, excluding any time spent in the performance of separately billed services. History of Present Illness Reason for Consultation: Paroxysmal atrial fibrillation Requesting Physician: Dr. José Antonio Nelson Attending Physician: Agnieszka Bahena MD History of Present Illness 58-year-old male presents to the emergency department with weakness, dizziness, nausea, and vomiting. Notes feeling unwell for approximately 10 days. Reduced oral intake over that time.. Consuming mainly a soft and liquid diet. History of squamous cell carcinoma of the palate in remission. Denies chest pain or shortness of breath. Reports several episodes of near syncope prior to admission. Denies overt syncope. No orthopnea, PND, lower extremity edema. Denies palpitations. Telemetry demonstrating atrial fibrillation with borderline rate control and spontaneous conversion to sinus tachycardia this morning. Bedside echocardiogram revealing a large circumferential pericardial effusion with evidence of right atrial and right ventricular compression. Allergies Allergy/AdvReac Type Severity Reaction Status Date / Time pollen extracts Allergy Intermediate ITCHY Verified 03/30/24 02:44 EYES, SNEEZING Poison [place] Extract/Poison Allergy Severe "CAN BE 20 Uncoded 03/30/24 02:44 [place] Extra FEET AWAY AND STILL GET IT"-BLISTERS, HIVES Home Medications Medication Instructions Recorded Confirmed Type atorvastatin 20 mg tablet 20 mg PO QPM 10/27/22 03/30/24 History lisinopril 5 mg tablet 5 mg PO QAM 10/27/22 03/30/24 History Patient History Medical History Rectal abscess Rectal fistula Hypercholesteremia Hypertension Surgical History History of surgery Rectal fistual and perianal abscess - required 3 surgeries; History of tooth extraction History of wisdom tooth extraction History of tonsillectomy Family History Sister Family history of reaction to anesthesia allergic to novacaine--causes irregular heartbeat Mother Pacemaker Chronic anticoagulation Cancer "Female cancer" Father , 86yo Natural with unknown cause Sister Medical history unknown Daughter No problems noted. Social History Smoking Status: Current every day smoker Tobacco Type: Cigarettes Cigarettes Per Day: 1 PPD x 40yrs; Second Hand Exposure: Yes (father smoked); Do You Dip or Chew Tobacco: No (quit 1981); Hx Alcohol Use: Yes Alcohol type: beer Hx Substance Use: No Preferred Language: Belarusian Communication Ability: Effective Visual Impairment: No Limitations Hearing Ability: Normal Resaw Operator Required: No Beliefs That Will Affect Care: None marital status: / current occupational status: retired Feels Safe at Home: Yes Diet: Soft Diet Comment: Soft/liquid diet due to dental extractions last week; caffeine: No during the past year weight has: remained stable Assistive Devices: Glasses Review of Systems Review of Systems: All systems reviewed & are unremarkable except as noted in Subjective Physical Exam Constitutional: well nourished; no acute distress Respiratory: no respiratory distress, no labored breathing and no retractions Auscultation: lungs clear to auscultation bilaterally; no crackles, no rales, no rhonchi and no wheezes Cardiovascular: Rate/Rhythm: regular rate and regular rhythm Heart Sounds: normal S1 and normal S2; no murmur Vessels: + JVD and radial pulses present Extremities: no edema Gastrointestinal (Abdomen): Inspection/Auscultation: abdomen normal to inspection and normal bowel sounds; abdomen not distended Percussion/Palpation: abdomen soft; abdomen nontender, no guarding and abdomen not rigid Neurologic: CN's II-XI intact bilaterally and moves all extremities; no focal motor deficits Results & Data Vital Signs (Past 12 Hours) Vital Signs Temp Pulse Pulse Resp BP BP Pulse Ox 03/30/24 08:42 101 H 20 03/30/24 08:33 101 H 19 03/30/24 08:33 03/30/24 08:21 101 H 20 03/30/24 08:03 103 H 16 99/69 L 03/30/24 07:42 107 H 98 03/30/24 07:33 100 H 19 96 03/30/24 07:24 101 H 20 96 03/30/24 07:15 101 H 20 96 03/30/24 07:06 100 H 101/70 96 03/30/24 06:48 102 H 19 98 03/30/24 06:35 101 H 03/30/24 06:33 101 H 20 97 03/30/24 06:24 103 H 18 98 03/30/24 06:18 104 H 18 97 03/30/24 06:00 103 H 15 112/78 97 03/30/24 05:48 108 H 18 100 03/30/24 05:34 76/59 L 03/30/24 05:30 76/59 L 03/30/24 05:30 98 H 19 97 03/30/24 05:24 119 H 20 98 03/30/24 05:15 100 H 03/30/24 05:12 112 H 19 97 03/30/24 05:00 99 H 17 98 03/30/24 05:00 98 H 20 81/62 L 96 03/30/24 04:48 91 H 19 99 03/30/24 04:33 98 H 19 100 03/30/24 04:21 94 H 21 100 03/30/24 04:12 103 H 21 100 03/30/24 04:00 88 17 100 03/30/24 04:00 104 H 16 95/68 L 100 03/30/24 03:57 88 17 100 03/30/24 03:50 105/78 03/30/24 03:06 107 H 19 100 03/30/24 03:00 107 H 17 100 03/30/24 02:42 109 H 03/30/24 02:39 109 H 19 82/62 L 100 03/30/24 02:35 36.5 C 110 H 16 94/65 L 98 Pulse Ox O2 Del Method O2 Del Method 03/30/24 08:42 03/30/24 08:33 03/30/24 08:33 97 Room Air 03/30/24 08:21 03/30/24 08:03 03/30/24 07:42 03/30/24 07:33 03/30/24 07:24 03/30/24 07:15 03/30/24 07:06 03/30/24 06:48 03/30/24 06:35 03/30/24 06:33 03/30/24 06:24 03/30/24 06:18 03/30/24 06:00 Room Air 03/30/24 05:48 03/30/24 05:34 03/30/24 05:30 03/30/24 05:30 03/30/24 05:24 03/30/24 05:15 03/30/24 05:12 03/30/24 05:00 03/30/24 05:00 Room Air 03/30/24 04:48 03/30/24 04:33 03/30/24 04:21 03/30/24 04:12 03/30/24 04:00 03/30/24 04:00 Room Air 03/30/24 03:57 03/30/24 03:50 03/30/24 03:06 03/30/24 03:00 03/30/24 02:42 03/30/24 02:39 Room Air 03/30/24 02:35 Room Air Laboratory Results Cardiac Enzymes 03/30/24 Range/Units 03:08 AST 15 (13-39) U/L Troponin I High Sens 7.2 (0-20) pg/ml Coagulation 03/30/24 Range/Units 03:08 PT 11.6 (9.0-12.0) Seconds APTT 27 (21-31) Seconds CBC 03/30/24 Range/Units 03:08 WBC 10.39 (4.8-10.8) K/ul RBC 3.36 L (4.70-6.10) M/uL Hgb 12.3 L (14.0-18.0) g/dl Hct 33.5 L (42.0-52.0) % Plt Count 256 (130-400) K/uL Neut # (Auto) 8.18 H (1.40-6.50) K/uL Lymph # (Auto) 0.54 L (1.20-3.40) K/uL [place] # (Auto) 1.48 H (0.11-0.59) K/uL Eos # (Auto) 0.03 (0.00-0.50) K/uL Baso # (Auto) 0.05 (0.00-0.20) K/uL Comprehensive Metabolic Panel 03/30/24 03/30/24 Range/Units 03:08 06:30 Sodium 122 L 127 L (136-145) mmol/L Potassium 3.9 (3.5-5.1) mmol/L Chloride 87 L (98-107) mmol/L Carbon Dioxide 26 (21-32) mmol/L BUN 15 (6-23) mg/dl Creatinine 1.29 (0.6-1.4) mg/dl Glucose 155 H (70-99(Fasting)) mg/dl Calcium 9.1 (8.6-10.3) mg/dl AST 15 (13-39) U/L ALT 10 (7-52) U/L Alkaline Phosphatase 69 (34-104) U/L Total Protein 6.4 (6.0-8.3) gm/dl Albumin 3.4 (3.4-5.0) gm/dl Intake and Output 03/29/24 03/30/24 03/30/24 22:59 06:59 14:59 Intake Total 2270 / 2270 1233.333 / 1233.333 Balance 2270 / 2270 1233.333 / 1233.333 Intake: IV 2270 / 2270 1233.333 / 1233.333 Lactated Ringer's 1,000 ml @ 1070 / 1070 930 / 930 500 mls/hr IV .Q2H ONE Rx#: [id number] Magnesium Sulfate / D5w 1 gm In 100 / 100 100 ml @ 50 mls/hr IV ONE ONE Rx#:[id number] Piperacillin/Tazobactam 4.5 gm 200 / 200 In 100 ml @ 200 mls/hr IV NOW ONE Rx#:[id number] Sodium Chloride 0.9% 1,000 ml @ 1000 / 1000 999 mls/hr IV .Q1H1M STA Rx#: [id number] Vancomycin HCl 1,250 mg In 203.333 / 203.333 Sodium Chloride 0.9% 500 ml @ 200 mls/hr IV NOW ONE Rx#: [id number] Other: Weight 61.2 kg Weight Measurement Method Built in [facility]
[2024-03-30] MEDS: PIPERACILLIN/TAZOBACTAM 4.5 GM in DEXTROSE 5% MINI-B 100 ML IV SCH (09:37)
[2024-03-30] MEDS: MULTIVITAMIN TAB PO SCH (09:37)
[2024-03-30] MEDS: FOLIC ACID 1 MG TAB PO SCH (09:37)
--- NOTE | 2024-03-30 10:07 | Pre Anesthesia Assessment ---
Date of Service March 30, 2024 Pre Sedation Assessment Vital Signs Temp Pulse Pulse Resp BP BP Pulse Ox 03/30/24 09:59 78 16 78/61 L 94 03/30/24 09:40 85/60 L 03/30/24 09:39 103 H 20 96 03/30/24 09:30 94 H 17 95 03/30/24 09:30 86/57 L 03/30/24 09:27 94 H 18 95 03/30/24 09:15 100 H 15 96 03/30/24 09:00 128/88 03/30/24 09:00 107 H 12 95 03/30/24 08:54 102 H 18 96 03/30/24 08:42 101 H 20 03/30/24 08:33 101 H 19 03/30/24 08:33 03/30/24 08:21 101 H 20 03/30/24 08:03 103 H 16 99/69 L 03/30/24 07:42 107 H 98 03/30/24 07:33 100 H 19 96 03/30/24 07:24 101 H 20 96 03/30/24 07:15 101 H 20 96 03/30/24 07:06 100 H 101/70 96 03/30/24 06:48 102 H 19 98 03/30/24 06:35 101 H 03/30/24 06:33 101 H 20 97 03/30/24 06:24 103 H 18 98 03/30/24 06:18 104 H 18 97 03/30/24 06:00 103 H 15 112/78 97 03/30/24 05:48 108 H 18 100 03/30/24 05:34 76/59 L 03/30/24 05:30 76/59 L 03/30/24 05:30 98 H 19 97 03/30/24 05:24 119 H 20 98 03/30/24 05:15 100 H 03/30/24 05:12 112 H 19 97 03/30/24 05:00 99 H 17 98 03/30/24 05:00 98 H 20 81/62 L 96 03/30/24 04:48 91 H 19 99 03/30/24 04:33 98 H 19 100 03/30/24 04:21 94 H 21 100 03/30/24 04:12 103 H 21 100 03/30/24 04:00 88 17 100 03/30/24 04:00 104 H 16 95/68 L 100 03/30/24 03:57 88 17 100 03/30/24 03:50 105/78 03/30/24 03:06 107 H 19 100 03/30/24 03:00 107 H 17 100 03/30/24 02:42 109 H 03/30/24 02:39 109 H 19 82/62 L 100 03/30/24 02:35 36.5 C 110 H 16 94/65 L 98 Pulse Ox O2 Del Method O2 Del Method 03/30/24 09:59 Room Air 03/30/24 09:40 03/30/24 09:39 03/30/24 09:30 03/30/24 09:30 03/30/24 09:27 03/30/24 09:15 03/30/24 09:00 03/30/24 09:00 03/30/24 08:54 03/30/24 08:42 03/30/24 08:33 03/30/24 08:33 97 Room Air 03/30/24 08:21 03/30/24 08:03 03/30/24 07:42 03/30/24 07:33 03/30/24 07:24 03/30/24 07:15 03/30/24 07:06 03/30/24 06:48 03/30/24 06:35 03/30/24 06:33 03/30/24 06:24 03/30/24 06:18 03/30/24 06:00 Room Air 03/30/24 05:48 03/30/24 05:34 03/30/24 05:30 03/30/24 05:30 03/30/24 05:24 03/30/24 05:15 03/30/24 05:12 03/30/24 05:00 03/30/24 05:00 Room Air 03/30/24 04:48 03/30/24 04:33 03/30/24 04:21 03/30/24 04:12 03/30/24 04:00 03/30/24 04:00 Room Air 03/30/24 03:57 03/30/24 03:50 03/30/24 03:06 03/30/24 03:00 03/30/24 02:42 03/30/24 02:39 Room Air 03/30/24 02:35 Room Air Cardiovascular Additional Comments: JVD to the angle of the jaw Mild dyspnea Distant heart sounds Respiratory Additional Comments: Mild dyspnea Fair air movement Otherwise clear Pre-Sedation Airway Assessment Smoking Status: Current every day smoker Hx Sleep Apnea: No Short, Thick Neck: No Thyromental Distance: > or= 3.5 Finger Breadths Oral Cavity: + WNL Mallampati Class: III ASA: ASA4 NPO Status Date of Last Intake of Solid Food: 03/29/24 Time of Last Intake of Solid Foods: 21:00 Notes The planned sedation has been discussed with the patient. Informed Consent was obtained. I have identified the patient, determined the appropriateness of sedation and have assessed the patient immediately prior to the procedure. All medicine(s) and interventions are by my order.
[2024-03-30] MEDS: fentaNYL citrate PF 100 MCG/2 ML VIAL ONE (10:47)
[2024-03-30] MEDS: HEPARIN (PORCINE) 1000 UNIT/ML 10 ML (CATH LAB USE ONLY) ONE (10:47)
[2024-03-30] MEDS: LIDOCAINE 1% LOCAL 20 ML VIAL ONE (10:48)
[2024-03-30] MEDS: MIDAZOLAM HCL 1 MG/ML 2ML VIAL ONE (10:48)
--- NOTE | 2024-03-30 10:58 | Post Anesthesia Assessment ---
Date of Service March 30, 2024 Post Sedation Assessment Vital Signs Temp Pulse Pulse Resp BP BP Pulse Ox 03/30/24 09:59 78 16 78/61 L 94 03/30/24 09:40 85/60 L 03/30/24 09:39 103 H 20 96 03/30/24 09:30 94 H 17 95 03/30/24 09:30 86/57 L 03/30/24 09:27 94 H 18 95 03/30/24 09:15 100 H 15 96 03/30/24 09:00 128/88 03/30/24 09:00 107 H 12 95 03/30/24 08:54 102 H 18 96 03/30/24 08:42 101 H 20 03/30/24 08:33 101 H 19 03/30/24 08:33 03/30/24 08:21 101 H 20 03/30/24 08:03 103 H 16 99/69 L 03/30/24 07:42 107 H 98 03/30/24 07:33 100 H 19 96 03/30/24 07:24 101 H 20 96 03/30/24 07:15 101 H 20 96 03/30/24 07:06 100 H 101/70 96 03/30/24 06:48 102 H 19 98 03/30/24 06:35 101 H 03/30/24 06:33 101 H 20 97 03/30/24 06:24 103 H 18 98 03/30/24 06:18 104 H 18 97 03/30/24 06:00 103 H 15 112/78 97 03/30/24 05:48 108 H 18 100 03/30/24 05:34 76/59 L 03/30/24 05:30 76/59 L 03/30/24 05:30 98 H 19 97 03/30/24 05:24 119 H 20 98 03/30/24 05:15 100 H 03/30/24 05:12 112 H 19 97 03/30/24 05:00 99 H 17 98 03/30/24 05:00 98 H 20 81/62 L 96 03/30/24 04:48 91 H 19 99 03/30/24 04:33 98 H 19 100 03/30/24 04:21 94 H 21 100 03/30/24 04:12 103 H 21 100 03/30/24 04:00 88 17 100 03/30/24 04:00 104 H 16 95/68 L 100 03/30/24 03:57 88 17 100 03/30/24 03:50 105/78 03/30/24 03:06 107 H 19 100 03/30/24 03:00 107 H 17 100 03/30/24 02:42 109 H 03/30/24 02:39 109 H 19 82/62 L 100 03/30/24 02:35 36.5 C 110 H 16 94/65 L 98 Pulse Ox O2 Del Method O2 Del Method 03/30/24 09:59 Room Air 03/30/24 09:40 03/30/24 09:39 03/30/24 09:30 03/30/24 09:30 03/30/24 09:27 03/30/24 09:15 03/30/24 09:00 03/30/24 09:00 03/30/24 08:54 03/30/24 08:42 03/30/24 08:33 03/30/24 08:33 97 Room Air 03/30/24 08:21 03/30/24 08:03 03/30/24 07:42 03/30/24 07:33 03/30/24 07:24 03/30/24 07:15 03/30/24 07:06 03/30/24 06:48 03/30/24 06:35 03/30/24 06:33 03/30/24 06:24 03/30/24 06:18 03/30/24 06:00 Room Air 03/30/24 05:48 03/30/24 05:34 03/30/24 05:30 03/30/24 05:30 03/30/24 05:24 03/30/24 05:15 03/30/24 05:12 03/30/24 05:00 03/30/24 05:00 Room Air 03/30/24 04:48 03/30/24 04:33 03/30/24 04:21 03/30/24 04:12 03/30/24 04:00 03/30/24 04:00 Room Air 03/30/24 03:57 03/30/24 03:50 03/30/24 03:06 03/30/24 03:00 03/30/24 02:42 03/30/24 02:39 Room Air 03/30/24 02:35 Room Air Recovery Score Activity: Moves 4 extremities Respiration: Deep Breath/Cough Circulation: +/-20% PreAnes Value Consciousness: Fully Awake Oxygen Saturation: > 92% On Room Air Discharge Sedation Level of Care: Fast Track Phase II Post Sedation Plan On clinical assessment, the patient appears to have tolerated the sedation without complications. Patient is recovering as anticipated. Patient will continue to be monitored by nursing and may be discharged when sedation discharge criteria are met per below protocol. Upon Completions of procedure up to 15 minutes continue every 5 minute vital signs and the P.A.R. score; then discharge to a Phase I or Fast Track to Phase II per the following guidelines: * Discharge Patient to appropriate Phase II area if PAR is 8 or greater or return to pre- procedure baseline. The post - procedure orders will be as directed. * If PAR score is less than 8 or not return to pre-procedure baseline then patient will follow Phase I monitoring till PAR is reached for Phase II. The Phase I may be done in procedure room or may call to secure a Phase I area. * If naloxone or flumazenil are used for reversal, hold in Phase I for continued monitoring from when last reversal dose was given for a minimum of 60 minutes or longer pending the nurse and/or physician discretion of patient condition before discharge to Phase II. Please call the Sedation Physician to re-evaluate and complete post-note for discharge to Phase II area. Do NOT discharge from procedure sedation or Phase 1 until post- sedation evaluation note is complete by procedure /sedation MD Sedation Discharge Instructions to be given to the patient at discharge to home. [facility] Procedure Codes (Charges) Indication for Procedure Indication for procedure: Pericardial effusion Pericardial tamponade Sedation/Anesthesia Procedure 1: Sedation/Anesthesia: 98581 Mod Sedation by the same physician;Init15 Min Child Age 5 & Up (Start time 1022) Total Sedation Time (minutes): 23 Procedure 2: Sedation/Anesthesia: 85060 Mod Sedation by the same physician; Ea [id number] Minutes (Additional 8 minutes, end time 1045) Total Sedation Time (minutes): 23
--- NOTE | 2024-03-30 11:02 | Electrocardiogram Report ---
Test Reason : Blood Pressure : / mmHG Vent. Rate : 106 BPM Atrial Rate : 000 BPM P-R Int : 000 ms QRS Dur : 070 ms QT Int : 368 ms P-R-T Axes : 000 069 073 degrees QTc Int : 488 ms Atrial fibrillation with rapid ventricular response Abnormal ECG When compared with ECG of 30-MAR-2024 02:56, (unconfirmed) Atrial fibrillation has replaced Sinus rhythm Confirmed by Timur Kirkland ([id number]) on 03/30/2024 11:02:08 AM Referred By: REFERRED SELF Confirmed By:Timur Kirkland
--- NOTE | 2024-03-30 11:02 | Electrocardiogram Report ---
Test Reason : Blood Pressure : / mmHG Vent. Rate : 105 BPM Atrial Rate : 105 BPM P-R Int : 156 ms QRS Dur : 072 ms QT Int : 354 ms P-R-T Axes : 082 086 080 degrees QTc Int : 467 ms Sinus tachycardia Nonspecific ST abnormality Abnormal ECG When compared with ECG of 27-OCT-2022 10:22, No significant change was found Confirmed by Timur Kirkland ([id number]) on 03/30/2024 11:02:14 AM Referred By: REFERRED SELF Confirmed By:Timur Kirkland
--- NOTE | 2024-03-30 11:16 | Operative Report ---
PG Post Operative Report Pre & Post Diagnosis Operation Date: 03/30/24 09:30 <No data on this case meets the specified criteria> Preop: Pericardial effusion (large) with evidence of tamponade Postop: Pericardial effusion status post pericardiocentesis (ultrasound-guided) I identified the patient and participated in the time-out.: Yes Procedure Operation Date: 03/30/24 09:30 Actual Procedures p Cineradiography w/Routine Exam - Matt Smith MD, PhD Surgeon Matt Smith MD, PhD Clinical Support Associate Rosaline Vivar LUBE ATTENDANT Estimated Blood Loss 1 Findings Consistent with Post-Op Diagnosis Removal of 480 cc straw-colored pericardial fluid No evidence of complication, chest x-ray pending. Echo resolution of pericardial effusion Postprocedure physical exam with resolution of JVD Specimens 100 cc straw-colored pericardial fluid Drains Pigtail pericardial drain Anesthesia Type RN Sedation Complications none Disposition Disposition: Recovery Room Indications Large pericardial effusion with echo evidence of pericardial tamponade Hypotension Description of Procedure Patient was brought to the cardiac catheterization suite where he was shaved and prepped in a sterile fashion. Sedated using IV fentanyl. Soft tissues of the anterior chest were anesthetized using 15 mL of 1% Xylocaine. Using the echo for guidance, a micropuncture needle was via the subxiphoid approach, however, because of his long thorax we could not reach the pericardium and could not visualize the needle adequately. Therefore, decision was made to access via the anterior approach. The soft tissues of the left anterior chest were anesthetized using 5 mL of lidocaine. Advancing the micropuncture needle under ultrasound guidance in the fifth intercostal space we were able to identify the needle and with negative pressure during aspiration we were then able to enter the pericardial space. A micropuncture guidewire was then advanced through the needle and the needle was removed. We visualized on fluoroscopy and then advanced the micropuncture sheath. Confirmed pericardial placement using agitated saline injection through the sheath. A 0.035 J-tip wire was then advanced and positioned within the pericardium near the base of the heart. Micropuncture sheath was removed and the tissue tract was dilated with the available dilator in the pericardial drain kit. We then advanced the pericardial pigtail catheter over the wire into the pericardial space. We removed 100 cc of straw-colored pericardial fluid to be sent to the lab for testing. We then drained the remainder of the visible pericardial fluid using the ultrasound to confirm reduction of pericardial effusion. A total of 480 cc of fluid was removed. The pigtail catheter was then attached to the accordion negative pressure collection bag and the catheter was sutured in place. A Biopatch was then placed and the pigtail catheter was secured further with Tegaderm. The patient reported no shortness of breath or chest pain. His hemodynamics had improved and his JVD had resolved. He was therefore transported to the recovery area awaiting bed availability in the ICU. This ended the case. I attest to the content of the Intraoperative Record and any orders documented therein. Any exceptions are noted below.
--- NOTE | 2024-03-30 11:49 | XRay Report ---
XR chest 1V portable CLINICAL HISTORY: Evaluate post pericardiocentesis TECHNIQUE: Single frontal radiograph of the chest was obtained. Comparison: Comparison is made to chest radiograph 03/30/2024 FINDINGS: No lines and tubes are seen. Cardiac silhouette remains prominent although possibly slightly decrease d from prior exam. The lungs are clear. No evidence of pleural effusion or pneumothorax. IMPRESSION: No acute abnormality status post pericardiocentesis. No pneumopericardium or pneumothorax. ACT 112: Negative or not required by law. Electronically signed by: Nish Butler M.D. 03/30/2024 11:46 AM
[2024-03-30] MEDS: DAPTOmycin 400 MG in SYRINGE 0 ML IV SCH (14:45)
--- NOTE | 2024-03-30 15:14 | Communication Note ---
Date of Service: March 30, 2024 The patient was seen and examined in the ICU. He was admitted early this morning and noted to have pericardial effusion with tamponade with history of paroxysmal atrial fibrillation. She also came in with near syncope and volume depletion. He is a status post 4 HTML of pericardiocentesis and has been doing better since the procedure. Will a full progress note tomorrow. Dr Flip Bahena
[2024-03-30] MEDS: ACETAMINOPHEN 325 MG TAB PO PRN (19:38)
[2024-03-30] MEDS: ATORVASTATIN 20 MG TAB PO SCH (21:09)
[2024-03-31] MEDS: LACTATED RINGER'S 1,000 ML IV ONE ×2 (00:20→02:09)
[2024-03-31 01:58] LABS: Basophils # (auto) 0.06 K/uL (0.00-0.20); Basophils % (auto) 0.6 %; Hematocrit (blood only) 33.8 % (42.0-52.0); Hemoglobin 11.9 g/dl (14.0-18.0); Lymphocytes # (auto) 0.65 K/uL (1.20-3.40); Lymphocytes % (auto) 6.8 %; Mean Corpuscular Hemoglobin 36.5 pg (25.0-34.0); Mean Corpuscular Hgb Conc 35.2 g/dL (32.0-36.0); Mean Corpuscular Volume 103.7 fL (80.0-100.0); Mean Platelet Volume 10.3 fL (9.4-12.4); Monocytes # (auto) 1.35 K/uL (0.11-0.59); Monocytes % (auto) 14.1 %; Neutrophils # (auto) 7.32 K/uL (1.40-6.50); Neutrophils % (auto) 76.5 %; Platelet Count 228 K/uL (130-400); RDW Standard Deviation 42.2 fL (36.4-46.3); Red Blood Count 3.26 M/uL (4.70-6.10); White Blood Count 9.58 K/ul (4.8-10.8)
[2024-03-31 02:03] LABS: Calcium 8.3 mg/dl (8.6-10.3); Magnesium 1.6 mg/dl (1.7-2.4); Potassium 3.6 mmol/L (3.5-5.1)
[2024-03-31] MEDS: SODIUM CHLORIDE 0.45 % 1,000 ML IV ONE (02:09)
[2024-03-31 02:13] LABS: Creatinine Clr Calc Pharmacy 82.7 ml/min; Est GFR (African American) 111.4 ml/min; Est GFR (Non-African American) 96.1 ml/min; Phosphorus 3.4 mg/dl (2.5-4.9)
[2024-03-31] MEDS: MAGNESIUM SULFATE / D5W 1 GM/100 ML BAG IV ONE ×2 (02:25→22:28)
[2024-03-31] MEDS: D5W AND 1/2NSS + 20MEQ KCL 20 MEQ/1,000 ML BAG IV ONE (02:52)
[2024-03-31] MEDS: POTASSIUM CHLORIDE CRTAB 20 MEQ TABCR PO STA (03:04)
[2024-03-31] MEDS: DIGOXIN 250 MCG in SYRINGE 9 ML IV STA (03:26)
[2024-03-31] MEDS: THIAMINE HCL 100 MG TAB PO SCH (08:03)
--- NOTE | 2024-03-31 08:11 | Cardiology Progress Note ---
Date of Service March 31, 2024 Assessment & Plan (1) Pericardial effusion: (2) Paroxysmal atrial fibrillation: Plan 1. Large pericardial effusion -s/p pericardiocentesis 03/30/2024, pericardial drain 2. Paroxysmal atrial fibrillation/flutter -[id number] score 1 (HTN) 3. SCC palate (in remission) 4. HLD 5. HTN Patient with large pericardial effusion s/p pericardiocentesis 03/30/2024 -Repeat limited echocardiogram today to reassess pericardial effusion. Pigtail pericardial drain in place with small amount of serous drainage. -Telemetry reviewed with atrial flutter overnight. HR in 120's. Given digoxin 250mcg with conversion to NSR. Heart rate in the 80's. -Will hold off on starting AC until pigtail drain removed and effusion resolves. -Appears euvolemic on examination -Blood pressure is stable Case discussed with Dr. Robertson. I spent a total of 41 minutes on the date of service in preparation, delivery, and documentation of the care provided to this patient, excluding any time spent in the performance of separately billed services. Mirna Hussein PA-C Department of Cardiology, [facility] This chart was completed in part utilizing Speech Voice Recognition Software. Grammatical errors, random word insertions, pronoun errors, and incomplete sentences are an occasional consequence of this system due to software limitations, ambient noise, and hardware issues. Any formal questions or concerns about the content, text, or information contained within the body of this dictation should be directly addressed to the provider for clarification. Admission and Anticipated Discharge Date Admission Date: March 30, 2024 Supervising Physician Co-Signing Physician Notes I spent a total of 30 minutes on the date of service in preparation, delivery, and documentation of the care provided to this patient, excluding any time spent in the performance of separately billed services. Patient doing well today. He denies chest pain, dyspnea, or syncope. He underwent a pericardiocentesis yesterday and has pigtail catheter in place. Echocardiogram images pending, will review once available. Chikis Mcgovern is a 58 year old male with PMHx SCC of palate (in remission), rectal abscess/fistula, HLD, HTN that presented to [facility] ED 03/30 with weakness, near syncope, N/V. Feeling unwell x 10 days. Syptoms began with centralized brest one pain resolved with tylenol. Poor po intake. Denies recent illness/infection. Upon arrival, telemetry revealed borderline rate controlled atrial fibrillation with conversion to ST yesterday morning. Echocardiogram revealed large circumferential pericardial effusion with R atrial and ventricular compression. Patient underwent pericardiocentesis yesterday with 480 cc straw colored fluid obtained. No complications. AC not started due to procedure. Metoprolol unable to be added due to hypotension. Patient with atrial fibrillation overnight. Digoxin 250 given. Converted to NSR at 3AM Pigtail pericardial drain intact with small amount of serous drainage. Today patient reports feeling slightly better. Slept well. Denies shortness of breath, syncope/presyncope. Has chest discomfort with taking deep breaths. Review of Systems Review of Systems: All systems reviewed & are unremarkable except as noted in HPI & below Constitutional: + fatigue and + weakness Respiratory: chest pain with deep breathing Physical Exam Constitutional: + ill appearing and + thin Eyes: PERRL, conjunctivae normal, anicteric sclerae Respiratory: normal respiratory effort, lungs clear to auscultation No wheezes, rhonchi or rales Cardiovascular: RRR, no murmur, no edema Heart Sounds: normal S1 and normal S2 Vessels: no JVD pigtail pericardial drain intact with small amount of serous drainage Musculoskeletal: no cyanosis or clubbing, extremities motor strength 5/5 Skin: no rashes, warm and dry Psychiatric: Orientation: alert and oriented x 3 Affect: + flat affect Results & Data Vital Signs (Past 12 Hours) Vital Signs Temp Pulse Resp BP BP Pulse Ox 03/31/24 06:49 78 03/31/24 06:00 84 16 93 03/31/24 06:00 108/70 03/31/24 06:00 37.4 C 03/31/24 05:06 88 18 126/78 95 03/31/24 04:24 85 15 94 03/31/24 04:15 110/66 03/31/24 04:00 37.2 C 03/31/24 03:48 93 H 21 90 03/31/24 03:30 97 H 19 107/63 90 03/31/24 03:26 96 H 03/31/24 03:15 105/70 03/31/24 03:06 95 H 19 87 L 03/31/24 03:00 102/73 06/22/24 02:42 94 H 17 90 03/31/24 02:15 103/56 L 03/31/24 02:00 37.4 C 03/31/24 02:00 94/47 L 03/31/24 01:45 99/67 L 03/31/24 01:42 78 18 94 03/31/24 01:30 92 H 19 94 03/31/24 01:30 102/64 03/31/24 01:18 98/52 L 03/31/24 01:15 75 19 95 03/31/24 01:03 77 19 71/51 L 94 03/31/24 00:30 80/46 L 03/31/24 00:27 97 H 18 94 03/31/24 00:10 86/49 L 03/31/24 00:09 78 19 95 03/31/24 00:06 76/49 L 03/31/24 00:00 37.3 C 03/30/24 23:47 96 H 03/30/24 23:12 82 16 99/60 L 95 03/30/24 22:13 37.3 C 03/30/24 22:09 87 18 104/64 95 03/30/24 21:06 87 19 91/59 L 92 03/30/24 20:03 91 H 20 95/60 L 92 Laboratory Results CBC 03/31/24 Range/Units 01:30 WBC 9.58 (4.8-10.8) K/ul RBC 3.26 L (4.70-6.10) M/uL Hgb 11.9 L (14.0-18.0) g/dl Hct 33.8 L (42.0-52.0) % Plt Count 228 (130-400) K/uL Neut # (Auto) 7.32 H (1.40-6.50) K/uL Lymph # (Auto) 0.65 L (1.20-3.40) K/uL [place] # (Auto) 1.35 H (0.11-0.59) K/uL Eos # (Auto) 0.10 (0.00-0.50) K/uL Baso # (Auto) 0.06 (0.00-0.20) K/uL Comprehensive Metabolic Panel 03/30/24 03/31/24 Range/Units 11:56 01:30 Sodium 128 L 132 L (136-145) mmol/L Potassium 3.6 (3.5-5.1) mmol/L Chloride 101 (98-107) mmol/L Carbon Dioxide 26 (21-32) mmol/L BUN 9 (6-23) mg/dl Creatinine 0.82 D (0.6-1.4) mg/dl Glucose 105 H (70-99(Fasting)) mg/dl Calcium 8.3 L (8.6-10.3) mg/dl Intake and Output 03/30/24 03/31/24 03/31/24 22:59 06:59 14:59 Intake Total 150 / 3683.333 1200.000 / 3683.333 120 / 120 Output Total 300 / 1075 275 / 1075 200 / 200 Balance -150 / 2608.333 925.000 / 2608.333 -80 / -80 Intake: IV 100 / 3633.333 1200.000 / 3633.333 Lactated Ringer's 1,000 ml @ 1000.000 / 1000.000 500 mls/hr IV .Q2H [facility] Rx#: [id number] Magnesium Sulfate / D5w 1 gm In 100 / 100 100 ml @ 50 mls/hr IV ONE [facility] Rx#:[id number] Piperacillin/Tazobactam 4.5 gm 100 / 300 100 / 300 In Dextrose 5% Mini-B 100 ml @ 25 mls/hr IV Q8H [facility] Rx#: [id number] Oral 50 / 50 0 / 50 120 / 120 Output: Urine 300 / 1075 275 / 1075 200 / 200 Other: Weight 61.6 kg Weight Measurement Method Built in [facility] Diagnostic Findings Operative report Pericardiocentesis 03/30/2024 Removal of 480 cc straw colored pericardial fluid No evidence of complication Echo with resolution of pericardial effusion Postprocedural PE with resolution JVD ECHO 03/30/2024 Large circumferential pericardial effusion with moderate organization anteriorly The diastolic compression of the R atrium is suggestive of cardiac tamponade Dilated inferior vena cava with reduced collapsibility with sniff indicates an elevated R atrial pressure of 15 mmHg LVEF 65-70% EKG 03/31/2024 AFIB 120bpm
[2024-03-31] MEDS: FIRST - Mouthwash BLM 119 ML PO PRN (10:04)
--- NOTE | 2024-03-31 12:00 | Hospitalist Progress Note ---
Date of Service March 31, 2024 Assessment & Plan (1) Pericardial effusion: Plan: Presented with not feeling well for about 10 days with achy abdomen and watery diarrhea,near syncope and dehydration Noted to have massive pericardial effusion with tamponade on studies Status post 480 mL of pericardiocentesis-tests from the fluid have been pending The cause of effusion remains to be determined determined Appreciate cardiology input and recommendation Clinically a little better Acute hypotension Complicated by dehydration and inability to take fluids and food due to history of oral cancer and recent irritation and jaw pain Could be the cause of presyncope Blood pressure has been improving following pericardiocentesis (2) Severe sepsis: Plan: SIRS plus ARF plus lactic acidosis Possible infective sources have been ruled out so far CT of the abdomen pelvis and soft tissue CT of the neck remain fairly unremarkable Diarrhea seems to be stopped and C. difficile toxin still pending Blood cultures have been negative and UA was unremarkable no evidence of pneumonia on chest x-ray Has been getting empiric Dapto and Zosyn Will continue current antibiotic until reports from the pericardiocentesis fluid are available (3) Paroxysmal atrial fibrillation: Plan: Presented with atrial fibrillation and RVR Likely secondary to irritation from pericarditis/medical effusion Has had atrial fibrillation with rapid rate last night and required intravenous digoxin Beta-marlin cannot be given due to low blood pressure Heart rate seems to be controlled as of this morning Not on any anticoagulation the yet due to medication synthesis (4) Acute hyponatremia: Plan: Acute on chronic hyponatremia Chronic hyponatremia seems to be secondary to use of alcohol Sodium level is noted to be 121 on presentation Has been at 132 as of today 03/29/2024 Will monitor PRP (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: Plan: 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 , now in remission CT of the soft tissue of the neck did not show any significant findings (6) Near syncope: Plan: Secondary to pericardial effusion with tamponade and hypotension Patient remains at rest in bed Will initiate PT OT on improvement Plan Other significant medical conditions are stable and as below: Hyperlipidemia, on statin Rx History of anal fistula/rectal abscess as per records Chronic anemia, hemoglobin better than baseline secondary to hemoconcentration Hyperglycemia rule out DM Past tobacco abuse DVT prophylaxis No pharmacologic anticoagulation due to status post pericardiocentesis CODE STATUS-full Admission and Anticipated Discharge Date Admission Date: March 30, 2024 Subjective 03/31/2024 The patient was seen and examined in ICU He is status post pericardiocentesis of 4 HTML of fluid Remains generally weak and lethargic and has been having occasional chest pain with breathing and activity Denies any nausea no vomiting No fever and no chills Review of Systems Review of Systems: All systems reviewed and are unremarkable except as noted below Physical Exam Physical Exam: Lying in bed with some discomfort secondary to chest pain but no shortness of breath Constitutional: + ill appearing and + thin Eyes: PERRL, conjunctivae normal, anicteric sclerae ENMT: external ear and nose normal, oropharynx normal Neck: trachea midline, no thyromegaly Respiratory: no respiratory distress Auscultation: + diminished lung sounds and + crackles (Minimal crackles at the bases) Cardiovascular: Rate/Rhythm: not tachycardic and not irregularly irregular Heart Sounds: normal S1 and normal S2; no murmur Extremities: no edema Chest (Breasts): Additional Comments: Has pericardiocentesis drain in situ Gastrointestinal (Abdomen): Inspection/Auscultation: normal bowel sounds; abdomen not distended Percussion/Palpation: abdomen soft; abdomen nontender Musculoskeletal: No acute arthritis involving any of the joints Neurologic: normal touch/pain/proprioception and moves all extremities; no focal motor deficits Results & Data Results & Data Vital Signs (Past 12 Hours) Vital Signs Temp Pulse Resp BP BP Pulse Ox O2 Del Method 03/31/24 10:00 85 21 94 03/31/24 10:00 97/63 L 03/31/24 09:51 87 19 94 03/31/24 09:42 87 19 95 03/31/24 09:39 86 20 94 03/31/24 09:21 88 20 94 03/31/24 09:12 96 H 18 95 03/31/24 09:06 95 H 21 93 03/31/24 08:57 92 H 19 94 03/31/24 08:45 93 H 20 94 03/31/24 08:21 90 20 93 03/31/24 08:20 Room Air 03/31/24 08:18 88 17 94 03/31/24 08:13 03/31/24 08:00 108/73 03/31/24 07:59 37.1 C 03/31/24 07:54 93 H 17 94 03/31/24 07:30 90 18 93 Room Air 03/31/24 07:30 116/81 03/31/24 07:21 98 H 22 93 03/31/24 06:49 78 03/31/24 06:33 79 17 93 03/31/24 06:21 83 17 92 03/31/24 06:00 84 16 93 03/31/24 06:00 108/70 03/31/24 06:00 37.4 C 03/31/24 05:06 88 18 126/78 95 03/31/24 04:24 85 15 94 03/31/24 04:15 110/66 03/31/24 04:00 37.2 C 03/31/24 03:48 93 H 21 90 03/31/24 03:30 97 H 19 107/63 90 03/31/24 03:26 96 H 03/31/24 03:15 105/70 03/31/24 03:06 95 H 19 87 L 03/31/24 03:00 102/73 03/31/24 02:42 94 H 17 90 03/31/24 02:15 103/56 L 03/31/24 02:00 37.4 C 03/31/24 02:00 94/47 L 03/31/24 01:45 99/67 L 03/31/24 01:42 78 18 94 03/31/24 01:30 92 H 19 94 03/31/24 01:30 102/64 03/31/24 01:18 98/52 L 03/31/24 01:15 75 19 95 03/31/24 01:03 77 19 71/51 L 94 03/31/24 00:30 80/46 L 03/31/24 00:27 97 H 18 94 03/31/24 00:10 86/49 L 03/31/24 00:09 78 19 95 03/31/24 00:06 76/49 L 03/31/24 00:00 37.3 C O2 Del Method 03/31/24 10:00 03/31/24 10:00 03/31/24 09:51 03/31/24 09:42 03/31/24 09:39 03/31/24 09:21 03/31/24 09:12 03/31/24 09:06 03/31/24 08:57 03/31/24 08:45 03/31/24 08:21 03/31/24 08:20 03/31/24 08:18 03/31/24 08:13 Room Air 03/31/24 08:00 03/31/24 07:59 03/31/24 07:54 03/31/24 07:30 03/31/24 07:30 03/31/24 07:21 03/31/24 06:49 03/31/24 06:33 03/31/24 06:21 03/31/24 06:00 03/31/24 06:00 03/31/24 06:00 03/31/24 05:06 03/31/24 04:24 03/31/24 04:15 03/31/24 04:00 03/31/24 03:48 03/31/24 03:30 03/31/24 03:26 03/31/24 03:15 03/31/24 03:06 03/31/24 03:00 03/31/24 02:42 03/31/24 02:15 03/31/24 02:00 03/31/24 02:00 03/31/24 01:45 03/31/24 01:42 03/31/24 01:30 03/31/24 01:30 03/31/24 01:18 03/31/24 01:15 03/31/24 01:03 03/31/24 00:30 03/31/24 00:27 03/31/24 00:10 03/31/24 00:09 03/31/24 00:06 03/31/24 00:00 Laboratory Results Short CBC 03/31/24 Range/Units 01:30 WBC 9.58 (4.8-10.8) K/ul Hgb 11.9 L (14.0-18.0) g/dl Hct 33.8 L (42.0-52.0) % Plt Count 228 (130-400) K/uL BMP 03/30/24 03/31/24 03/31/24 11:56 01:30 08:20 Sodium 128 L 132 L 132 L Potassium 3.6 Chloride 101 Carbon Dioxide 26 BUN 9 Creatinine 0.82 D Glucose 105 H Calcium 8.3 L Medications Administered Current Inpatient Medications Acetaminophen (Acetaminophen 325 Mg Tab) 650 mg PO QID PRN PRN Reason: pain/fever Stop: 04/29/24 06:18 Last Admin: 03/30/24 19:38 Dose: 650 mg Atorvastatin Calcium (Atorvastatin 20 Mg Tab) 20 mg PO QPM [facility] Stop: 04/29/24 20:59 Last Admin: 03/30/24 21:09 Dose: Not Given Folic Acid (Folic Acid 1 Mg Tab) 1 mg PO QAM [facility] Stop: 04/29/24 08:59 Last Admin: 03/31/24 08:03 Dose: 1 mg Promethazine HCl 6.25 mg/ (Sodium Chloride) 50.25 mls @ 201 mls/hr IV Q6H PRN PRN Reason: Nausea And Vomiting Stop: 04/29/24 06:18 Lorazepam 1 mg/ Syringe 1 mls @ 2 mls/min IV ONE PRN; Protocol PRN Reason: EtoH Withdrawal AWSS 6-10 Daptomycin 400 mg/ Syringe 8 mls @ 4 mls/min IV Q24H [facility]; Protocol Stop: 04/01/24 12:59 Last Admin: 03/30/24 14:45 Dose: 4 mls/min Piperacillin Sod/Tazobactam (Sod 4.5 gm/ Dextrose) 100 mls @ 25 mls/hr IV Q8H [facility]; Protocol Stop: 04/01/24 08:59 Last Admin: 03/31/24 09:15 Dose: 25 mls/hr Potassium Chloride/Dextrose/Sod Cl (D5w And 1/2nss + 20meq Kcl) 20 meq in 1,000 mls @ 75 mls/hr IV .[id number] ONE Stop: 03/31/24 15:49 Last Admin: 03/31/24 02:52 Dose: 75 mls/hr Multi-Ingredient Mouthwash/Gargle (First - Mouthwash Blm 119 Ml) 5 ml PO Q6H PRN PRN Reason: Sore Throat Stop: 04/30/24 08:14 Last Admin: 03/31/24 10:04 Dose: 5 ml [facility]ivitamins ([facility]itamin Tab) [facility] [place]: 04/29/24 08:59 Last Admin: 03/31/24 08:03 Dose: 1 tab Oxycodone HCl (Oxycodone Hcl Ir 5 Mg Tab (Immediate Release)) 5 mg PO Q4H PRN PRN Reason: Pain Stop: 04/13/24 06:18 Thiamine HCl (Thiamine Hcl 100 Mg Tab) 100 mg PO QAM [facility] Stop: 04/30/24 08:59 Last Admin: 03/31/24 08:03 Dose: 100 mg
--- NOTE | 2024-03-31 13:15 | Electrocardiogram Report ---
Test Reason : Blood Pressure : / mmHG Vent. Rate : 120 BPM Atrial Rate : 147 BPM P-R Int : 000 ms QRS Dur : 076 ms QT Int : 314 ms P-R-T Axes : 000 038 086 degrees QTc Int : 443 ms Atrial fibrillation with rapid ventricular response with premature ventricular or aberrantly conducte d complexes Low voltage QRS Nonspecific T wave abnormality Abnormal ECG When compared with ECG of 30-MAR-2024 04:04, Non-specific change in ST segment in Inferior leads Nonspecific T wave abnormality now evident in Lateral leads Confirmed by Timur Kirkland ([id number]) on 03/31/2024 1:14:58 PM Referred By: REFERRED SELF Confirmed By:Timur Kirkland
[2024-04-01] MEDS: METOPROLOL TARTRATE 1 MG/ML VIAL IV STA (02:09)
[2024-04-01 02:32] LABS: Basophils # (auto) 0.05 K/uL (0.00-0.20); Basophils % (auto) 0.5 %; Eosinophils # (auto) 0.13 K/uL (0.00-0.50); Eosinophils % (auto) 1.3 %; Hematocrit (blood only) 32.6 % (42.0-52.0); Hemoglobin 11.4 g/dl (14.0-18.0); Immature Granulocytes # (auto) 0.07 K/uL (0.01-0.20); Immature Granulocytes % (auto) 0.7 %; Lymphocytes # (auto) 0.83 K/uL (1.20-3.40); Mean Corpuscular Volume 102.8 fL (80.0-100.0); Monocytes # (auto) 1.41 K/uL (0.11-0.59); Monocytes % (auto) 13.6 %; Neutrophils # (auto) 7.86 K/uL (1.40-6.50); Neutrophils % (auto) 75.9 %; Platelet Count 242 K/uL (130-400); RDW Standard Deviation 42.3 fL (36.4-46.3); Red Blood Count 3.17 M/uL (4.70-6.10); White Blood Count 10.35 K/ul (4.8-10.8)
[2024-04-01 02:43] LABS: BUN Creatinine Ratio 6.5 (10-20); Creatinine Clr Calc Pharmacy 88.9 ml/min; Est GFR (African American) 114.3 ml/min; Est GFR (Non-African American) 98.6 ml/min; Magnesium 1.7 mg/dl (1.7-2.4); Phosphorus 2.8 mg/dl (2.5-4.9); Potassium 3.8 mmol/L (3.5-5.1)
[2024-04-01] MEDS: MAGNESIUM SULFATE / D5W 1 GM/100 ML BAG IV SCH (03:20)
[2024-04-01] MEDS: POTASSIUM CHLORIDE CRTAB 20 MEQ TABCR PO STA (03:20)
[2024-04-01] MEDS: DIGOXIN 125 MCG in SYRINGE 9.5 ML IV STA ×2 (03:26→09:12)
[2024-04-01] MEDS: SODIUM CHLORIDE 0.9% 500 ML IV SCH ×2 (03:27→04:41)
--- NOTE | 2024-04-01 08:03 | Cardiology Progress Note ---
Date of Service April 01, 2024 Assessment & Plan (1) Paroxysmal atrial fibrillation: (2) Pericardial effusion: Plan 1. Large pericardial effusion -s/p pericardiocentesis 03/30/2024, pericardial pigtail drain 2. Paroxysmal atrial fibrillation/flutter -[id number] score 1 (HTN) 3. SCC palate (in remission) 4. HLD 5. HTN Patient with large pericardial effusion s/p pericardiocentesis 03/30/2024 -Limited echo with stable effusion yesterday. Repeat limited echocardiogram today. -Brief AFIB overnight, converted to NSR with digoxin 125mcg -Telemetry with NSR, heart rate well controlled -Will start AC for stroke prophylaxis once pigtail drain removed and effusion resolves -Patient appears euvolemic on examination -Blood pressure is stable Case discussed with Dr. Robertson. I spent a total of 33 minutes on the date of service in preparation, delivery, and documentation of the care provided to this patient, excluding any time spent in the performance of separately billed services. Mirna Hussein PA-C Department of Cardiology, [facility] This chart was completed in part utilizing Speech Voice Recognition Software. Grammatical errors, random word insertions, pronoun errors, and incomplete sentences are an occasional consequence of this system due to software limitations, ambient noise, and hardware issues. Any formal questions or concerns about the content, text, or information contained within the body of this dictation should be directly addressed to the provider for clarification. Admission and Anticipated Discharge Date Admission Date: March 30, 2024 Supervising Physician Co-Signing Physician Notes I spent a total of 30 minutes on the date of service in preparation, delivery, and documentation of the care provided to this patient, excluding any time spent in the performance of separately billed services. Patient doing well today. He denies dyspnea, or syncope. He underwent a pericardiocentesis with 480cc drained and has pigtail catheter in place. Echocardiogram done today showed significant improvement in his pericardial effusion which no signs of cardiac tamponade. Will plan on repeating an echocardiogram limited in the morning. He did have runs of atrial fibrillation but he is back in sinus rhythm. Subjective POD #2: Patient reports feeling slightly better. Laying flat in bed comfortably. Denies shortness of breath, syncope/presyncope. Continues with mild chest discomfort with deep breathing. Pigtail pericardial drain intact with small amount of serous drainage. Review of Systems Review of Systems: All systems reviewed & are unremarkable except as noted in HPI & below Constitutional: + fatigue, + malaise and + weakness Physical Exam Constitutional: + thin and + malnourished Eyes: PERRL, conjunctivae normal, anicteric sclerae Respiratory: normal respiratory effort, lungs clear to auscultation Cardiovascular: RRR, no murmur, no edema Heart Sounds: normal S1 and normal S2 Vessels: no JVD Extremities: no edema Gastrointestinal (Abdomen): normal bowel sounds, soft, nontender, no hepatosplenomegaly Musculoskeletal: no cyanosis or clubbing, extremities motor strength 5/5 Skin: no rashes, warm and dry Psychiatric: A+Ox3, euthymic affect Results & Data Vital Signs (Past 12 Hours) Vital Signs Temp Pulse Pulse Resp BP BP Pulse Ox 04/01/24 07:32 36.7 C 79 20 99/64 L 91 04/01/24 07:23 130 H 04/01/24 06:53 92 H 133/72 04/01/24 06:18 82/56 L 04/01/24 06:15 80/56 L 04/01/24 06:01 94 H 15 110/59 L 91 04/01/24 05:49 98/52 L 04/01/24 05:01 37.5 C 79 22 94/54 L 92 04/01/24 04:33 88/55 L 04/01/24 04:32 78/51 L 04/01/24 03:45 76 90/60 L 04/01/24 03:36 85 22 98/65 L 95 04/01/24 03:26 92 H 04/01/24 03:02 37.3 C 87 22 90/60 L 93 04/01/24 02:24 78 94/51 L 04/01/24 02:16 88 20 85/60 L 91 04/01/24 02:10 83 95/56 L 90 04/01/24 02:09 92 H 95/56 L 04/01/24 02:00 90 97/56 L 90 04/01/24 01:45 146 H 103/77 93 04/01/24 01:16 81 19 103/63 91 04/01/24 00:11 87 04/01/24 00:10 37.5 C 89 20 104/64 91 03/31/24 23:13 88 21 109/66 93 03/31/24 22:07 37.4 C 87 21 97/63 L 92 03/31/24 21:01 89 23 101/66 93 03/31/24 20:02 95 H 27 H 104/63 92 03/31/24 19:55 37.2 C O2 Del Method 04/01/24 07:32 Room Air 04/01/24 07:23 04/01/24 06:53 04/01/24 06:18 04/01/24 06:15 04/01/24 06:01 Room Air 04/01/24 05:49 04/01/24 05:01 Room Air 04/01/24 04:33 04/01/24 04:32 04/01/24 03:45 04/01/24 03:36 Room Air 04/01/24 03:26 04/01/24 03:02 Room Air 04/01/24 02:24 04/01/24 02:16 Room Air 04/01/24 02:10 Room Air 04/01/24 02:09 04/01/24 02:00 Room Air 04/01/24 01:45 Room Air 04/01/24 01:16 Room Air 04/01/24 00:11 04/01/24 00:10 Room Air 03/31/24 23:13 Room Air 03/31/24 22:07 Room Air 03/31/24 21:01 Room Air 03/31/24 20:02 Room Air 03/31/24 19:55 Laboratory Results CBC 04/01/24 Range/Units 02:04 WBC 10.35 (4.8-10.8) K/ul RBC 3.17 L (4.70-6.10) M/uL Hgb 11.4 L (14.0-18.0) g/dl Hct 32.6 L (42.0-52.0) % Plt Count 242 (130-400) K/uL Neut # (Auto) 7.86 H (1.40-6.50) K/uL Lymph # (Auto) 0.83 L (1.20-3.40) K/uL [place] # (Auto) 1.41 H (0.11-0.59) K/uL Eos # (Auto) 0.13 (0.00-0.50) K/uL Baso # (Auto) 0.05 (0.00-0.20) K/uL Comprehensive Metabolic Panel 03/31/24 04/01/24 Range/Units 08:20 02:04 Sodium 132 L 129 L (136-145) mmol/L Potassium 3.8 (3.5-5.1) mmol/L Chloride 99 (98-107) mmol/L Carbon Dioxide 23 (21-32) mmol/L BUN 5 L (6-23) mg/dl Creatinine 0.77 (0.6-1.4) mg/dl Glucose 114 H (70-99(Fasting)) mg/dl Calcium 8.0 L (8.6-10.3) mg/dl Intake and Output 03/31/24 04/01/24 04/01/24 22:59 06:59 14:59 Intake Total 1340 / 2927.5 1367.5 / 2927.5 Output Total 475 / 1475 675 / 1475 Balance 865 / 1452.5 692.5 / 1452.5 Intake: IV 1100 / 2567.5 1367.5 / 2567.5 D5w and 1/2Nss + 20Meq KCl 20 1000 / 1000 meq In 1,000 ml @ 75 mls/hr IV .[id number] [facility] Rx#:[id number] Magnesium Sulfate / D5w 1 gm In 267.5 / 267.5 100 ml @ 50 mls/hr IV Q2H [facility] Rx#:[id number] Piperacillin/Tazobactam 4.5 gm 100 / 300 100 / 300 In Dextrose 5% Mini-B 100 ml @ 25 mls/hr IV Q8H [facility] Rx#: [id number] Sodium Chloride 0.9% 500 ml @ 1000 / 1000 500 mls/hr IV .Q1H [facility] Rx#: [id number] Oral 240 / 360 Output: Urine 475 / 1475 675 / 1475 Other: Weight 62 kg Weight Measurement Method Built in [facility] Diagnostic Findings Limited echocardiogram 03/31/2024 LVEF 60-65% Right ventricular systolic function is normal The RV cavity size is normal There is a moderate sized pericardial effusion mostly with an anterior distribution and no overt signs of tamponade
--- NOTE | 2024-04-01 09:14 | Electrocardiogram Report ---
Test Reason : Blood Pressure : / mmHG Vent. Rate : 124 BPM Atrial Rate : 300 BPM P-R Int : 000 ms QRS Dur : 074 ms QT Int : 218 ms P-R-T Axes : 000 026 139 degrees QTc Int : 313 ms Atrial flutter with variable A-V block Low voltage QRS Nonspecific ST and T wave abnormality Abnormal ECG When compared with ECG of 31-MAR-2024 03:00, No significant change Confirmed by Mark Sharpe ([id number]) on 04/01/2024 9:14:37 AM Referred By: REFERRED SELF Confirmed By:Mark Sharpe
--- NOTE | 2024-04-01 10:28 | XRay Report ---
SINGLE VIEW CHEST CLINICAL HISTORY: Congestive heart failure FINDINGS: An AP, portable, upright chest radiograph is compared to study dated 03/30/2024. The heart i s enlarged noting atherosclerotic calcification of the thoracic aorta. A presumed pericardial drain p rojects over the left lower chest. Pulmonary vascular congestion has worsened from previous. There ar e left larger than right pleural effusions with dependent consolidation. These have increased in size from 03/30/2024. No pneumothorax is seen. The skeletal structures are osteopenic. The bony thorax is grossly intact. IMPRESSION: 1. Cardiomegaly with worsening congestive failure and mild pulmonary edema. 2. Left larger than right pleural effusions with dependent consolidation. These have increased in siz e from previous. 3. A presumed pericardial drain projects over the left lower chest. ACT 112: Negative or not required by law. Electronically signed by: Paul Mariano M.D. 04/01/2024 10:26 AM
--- NOTE | 2024-04-01 13:10 | Hospitalist Progress Note ---
Date of Service April 01, 2024 Assessment & Plan (1) Pericardial effusion: Plan: Presented with not feeling well for about 10 days with achy abdomen and watery diarrhea,near syncope and dehydration Noted to have massive pericardial effusion with tamponade on studies Status post 480 mL of pericardiocentesis-tests from the fluid have been pending The cause of effusion remains to be determined determined Appreciate cardiology input and recommendation Clinically a little better Test results from the pericardiocentesis fluid are still pending Patient still complains some pain with deep breathing and movement Drainage from the pericardial tube has been decreasing and likely to be taken out by the orchid superintendent tomorrow Having attacks of paroxysmal A-fib with RVRmaking his blood pressure to go down Repeat chest x-ray showed cardiomegaly with increasing congestion Will try small dose of intravenous Lasix for now Acute hypotension Complicated by dehydration and inability to take fluids and food due to history of oral cancer and recent irritation and jaw pain Could be the cause of presyncope Blood pressure has been improving following pericardiocentesis Blood pressure has been running low specially when the heart rate is up He received 750 mL of intravenous fluid last night Has been having some crackles at the bases but no shortness of breath at rest and saturating normally on room air Chest x-ray that showed cardiomegaly with worsening congestive heart failure- left larger than right pleural effusion with dependent consolidation. These have increased in size from previous (2) Severe sepsis: Plan: SIRS plus ARF plus lactic acidosis Possible infective sources have been ruled out so far CT of the abdomen pelvis and soft tissue CT of the neck remain fairly unremarkable Diarrhea seems to be stopped and C. difficile toxin still pending Blood cultures have been negative and UA was unremarkable no evidence of pneumonia on chest x-ray Has been getting empiric Dapto and Zosyn Will continue current antibiotic until reports from the pericardiocentesis fluid are available Antibiotics were discontinued yesterday as it was impaired Will restart IV Zosyn and and doxycycline presumed left lower lobe infiltration (3) Paroxysmal atrial fibrillation: Plan: Presented with atrial fibrillation and RVR Likely secondary to irritation from pericarditis/medical effusion Has had atrial fibrillation with rapid rate last night and required intravenous digoxin Beta-marlin cannot be given due to low blood pressure Heart rate seems to be controlled as of this morning Not on any anticoagulation the yet due to medication synthesis Heart rate is controlled now (4) Acute hyponatremia: Plan: Acute on chronic hyponatremia Chronic hyponatremia seems to be secondary to use of alcohol Sodium level is noted to be 121 on presentation Has been at 132 as of today 03/29/2024 Will monitor PRP-sodium level is stable at 129 (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: Plan: 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 , now in remission CT of the soft tissue of the neck did not show any significant findings (6) Near syncope: Plan: Secondary to pericardial effusion with tamponade and hypotension Patient remains at rest in bed Will initiate PT OT on improvement Plan Other significant medical conditions are stable and as below: Hyperlipidemia, on statin Rx History of anal fistula/rectal abscess as per records Chronic anemia, hemoglobin better than baseline secondary to hemoconcentration Hyperglycemia rule out DM Past tobacco abuse DVT prophylaxis No pharmacologic anticoagulation due to status post pericardiocentesis CODE STATUS-full Admission and Anticipated Discharge Date Admission Date: March 30, 2024 Subjective 03/31/2024 The patient was seen and examined in ICU He is status post pericardiocentesis of 4 HTML of fluid Remains generally weak and lethargic and has been having occasional chest pain with breathing and activity Denies any nausea no vomiting No fever and no chills 04/01/2024 The patient was seen and examined in ICU He has been stable with weakness and tiredness Blood pressure has been running low below 90 systolic at times Has had attack of A-fib with RVR last night and received a dose of digoxin And also received 750 mL of normal saline to maintain blood Patient denies any symptoms at rest but complains today of chest pain with breathing and with movement Drainage from the pericardial to has been decreasing Review of Systems Review of Systems: All systems reviewed and are unremarkable except as noted below Physical Exam Physical Exam: Lying in bed with some discomfort secondary to chest pain but no shortness of breath Constitutional: + ill appearing and + thin Eyes: PERRL, conjunctivae normal, anicteric sclerae ENMT: external ear and nose normal, oropharynx normal Neck: trachea midline, no thyromegaly Respiratory: no respiratory distress Auscultation: + diminished lung sounds and + crackles (Minimal crackles at the bases) Cardiovascular: Rate/Rhythm: not tachycardic and not irregularly irregular Heart Sounds: normal S1 and normal S2; no murmur Extremities: no edema Gastrointestinal (Abdomen): Inspection/Auscultation: normal bowel sounds; abdomen not distended Percussion/Palpation: abdomen soft; abdomen nontender Musculoskeletal: No acute arthritis involving any of the joints Neurologic: normal touch/pain/proprioception and moves all extremities; no focal motor deficits Lymphatic: no cervical or axillary lymphadenopathy Results & Data Results & Data Vital Signs (Past 12 Hours) Vital Signs Temp Pulse Pulse Resp BP BP Pulse Ox 04/01/24 11:17 36.9 C 73 17 120/68 93 04/01/24 10:14 37.0 C 81 16 92 04/01/24 10:12 84/57 L 04/01/24 09:15 67 94/54 L 04/01/24 08:45 75/55 L 04/01/24 08:33 89/56 L 04/01/24 08:27 83/40 L 04/01/24 08:15 104/49 L 04/01/24 08:14 04/01/24 08:12 04/01/24 07:32 36.7 C 79 20 99/64 L 91 04/01/24 07:23 130 H 04/01/24 06:53 92 H 133/72 04/01/24 06:18 82/56 L 04/01/24 06:15 80/56 L 04/01/24 06:01 94 H 15 110/59 L 91 04/01/24 05:49 98/52 L 04/01/24 05:01 37.5 C 79 22 94/54 L 92 04/01/24 04:33 88/55 L 04/01/24 04:32 78/51 L 04/01/24 03:45 76 90/60 L 04/01/24 03:36 85 22 98/65 L 95 04/01/24 03:26 92 H 04/01/24 03:02 37.3 C 87 22 90/60 L 93 04/01/24 02:24 78 94/51 L 04/01/24 02:16 88 20 85/60 L 91 04/01/24 02:10 83 95/56 L 90 04/01/24 02:09 92 H 95/56 L 04/01/24 02:00 90 97/56 L 90 04/01/24 01:45 146 H 103/77 93 04/01/24 01:16 81 19 103/63 91 O2 Del Method O2 Del Method 04/01/24 11:17 Room Air 04/01/24 10:14 Room Air 04/01/24 10:12 04/01/24 09:15 04/01/24 08:45 04/01/24 08:33 04/01/24 08:27 04/01/24 08:15 04/01/24 08:14 Room Air 04/01/24 08:12 Room Air 04/01/24 07:32 Room Air 04/01/24 07:23 04/01/24 06:53 04/01/24 06:18 04/01/24 06:15 04/01/24 06:01 Room Air 04/01/24 05:49 04/01/24 05:01 Room Air 04/01/24 04:33 04/01/24 04:32 04/01/24 03:45 04/01/24 03:36 Room Air 04/01/24 03:26 04/01/24 03:02 Room Air 04/01/24 02:24 04/01/24 02:16 Room Air 04/01/24 02:10 Room Air 04/01/24 02:09 04/01/24 02:00 Room Air 04/01/24 01:45 Room Air 04/01/24 01:16 Room Air Laboratory Results Short CBC 04/01/24 Range/Units 02:04 WBC 10.35 (4.8-10.8) K/ul Hgb 11.4 L (14.0-18.0) g/dl Hct 32.6 L (42.0-52.0) % Plt Count 242 (130-400) K/uL BMP 04/01/24 02:04 Sodium 129 L Potassium 3.8 Chloride 99 Carbon Dioxide 23 BUN 5 L Creatinine 0.77 Glucose 114 H Calcium 8.0 L Medications Administered Current Inpatient Medications Acetaminophen (Acetaminophen 325 Mg Tab) 650 mg PO QID PRN PRN Reason: pain/fever Stop: 04/29/24 06:18 Last Admin: 04/01/24 07:53 Dose: 650 mg Atorvastatin Calcium (Atorvastatin 20 Mg Tab) 20 mg PO QPM [facility] Stop: 04/29/24 20:59 Last Admin: 03/30/24 21:09 Dose: Not Given Folic Acid (Folic Acid 1 Mg Tab) 1 mg PO QAM [facility] Stop: 04/29/24 08:59 Last Admin: 04/01/24 07:49 Dose: 1 mg Promethazine HCl 6.25 mg/ (Sodium Chloride) 50.25 mls @ 201 mls/hr IV Q6H PRN PRN Reason: Nausea And Vomiting Stop: 04/29/24 06:18 Lorazepam 1 mg/ Syringe 1 mls @ 2 mls/min IV ONE PRN; Protocol PRN Reason: EtoH Withdrawal AWSS 6-10 Multi-Ingredient Mouthwash/Gargle (First - Mouthwash Blm 119 Ml) 5 ml PO Q6H PRN PRN Reason: Sore Throat Stop: 04/30/24 08:14 Last Admin: 04/01/24 07:49 Dose: 5 ml Multivitamins (Multivitamin Tab) [address] [facility] Stop: 04/29/24 08:59 Last Admin: 04/01/24 07:49 Dose: 1 tab Oxycodone HCl (Oxycodone Hcl Ir 5 Mg Tab (Immediate Release)) 5 mg PO Q4H PRN PRN Reason: Pain Stop: 04/13/24 06:18 Thiamine HCl (Thiamine Hcl 100 Mg Tab) [facility] [place] Stop: 04/30/24 08:59 Last Admin: 04/01/24 07:49 Dose: 100 mg
[2024-04-01] MEDS: PIPERACILLIN/TAZOBACTAM 4.5 GM in DEXTROSE 5% MINI-B 100 ML IV SCH (14:01)
[2024-04-01] MEDS: DOXYCYCLINE HYCLATE 100 MG in DEXTROSE 5% MINI-B 100 ML IV SCH (14:01)
[2024-04-01] MEDS: FUROSEMIDE INJ 20 MG/2 ML VIAL IV ONE (14:02)
[2024-04-02 08:39] LABS: Basophils # (auto) 0.06 K/uL (0.00-0.20); Basophils % (auto) 0.6 %; Eosinophils # (auto) 0.38 K/uL (0.00-0.50); Eosinophils % (auto) 3.6 %; Hematocrit (blood only) 35.1 % (42.0-52.0); Hemoglobin 12.4 g/dl (14.0-18.0); Immature Granulocytes # (auto) 0.16 K/uL (0.01-0.20); Immature Granulocytes % (auto) 1.5 %; Lymphocytes # (auto) 0.78 K/uL (1.20-3.40); Lymphocytes % (auto) 7.4 %; Mean Corpuscular Hemoglobin 36.8 pg (25.0-34.0); Mean Corpuscular Hgb Conc 35.3 g/dL (32.0-36.0); Mean Corpuscular Volume 104.2 fL (80.0-100.0); Mean Platelet Volume 10.1 fL (9.4-12.4); Monocytes # (auto) 1.14 K/uL (0.11-0.59); Monocytes % (auto) 10.9 %; Neutrophils # (auto) 7.95 K/uL (1.40-6.50); Platelet Count 303 K/uL (130-400); RDW Standard Deviation 42.2 fL (36.4-46.3); Red Blood Count 3.37 M/uL (4.70-6.10); White Blood Count 10.47 K/ul (4.8-10.8)
[2024-04-02 08:57] LABS: BUN Creatinine Ratio 5.7 (10-20); C Reactive Protein 8.78 mg/dl (0-0.5); Calcium 8.3 mg/dl (8.6-10.3); Creatinine Clr Calc Pharmacy 77.3 ml/min; Est GFR (African American) 108.2 ml/min; Est GFR (Non-African American) 93.4 ml/min; Magnesium 1.5 mg/dl (1.7-2.4); Potassium 3.6 mmol/L (3.5-5.1)
[2024-04-02] MEDS: COLCHICINE 0.6 MG TAB PO SCH (08:59)
[2024-04-02] MEDS: POTASSIUM CHLORIDE CRTAB 20 MEQ TABCR PO STA (11:18)
[2024-04-02] MEDS: MAGNESIUM SULFATE / D5W 1 GM/100 ML BAG IV ONE (11:18)
--- NOTE | 2024-04-02 14:07 | Cardiology Progress Note ---
Date of Service April 02, 2024 Assessment & Plan (1) Pericardial effusion: (2) Paroxysmal atrial fibrillation: (3) Squamous cell carcinoma of soft palate: Plan: 58-year-old male with a history of cigarette smoking who had been diagnosed with 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 in 2022. He was treated with chemotherapy and radiation therapy. He received 3 cycles of cisplatin and subsequent carboplatin because of ototoxicity, his last chemotherapy treatment was performed on 10/27/2023. Most recent PET scan revealed stable findings in January,. Patient presented with progressive symptoms of dyspnea over 1 month. Was found to have a large circumferential pericardial effusion with tamponade physiology for which he underwent emergent pericardiocentesis on 03/30/2024 Yielding 480 cc of straw-colored pericardial fluid. Hypotension and jugular venous distention resolved post procedure. ESR obtained today 04/02/2024 elevated at 52 mm/hr, CRP 8.78 mg/dL. Cytology of the pericardial fluid is negative for malignancy. The pericardial fluid was not sent for culture. Lyme screen was negative. DEMETRICE screen obtained 04/02/2024 and is pending. Pericardiocentesis catheter removed personally at the bedside today with sterile technique. Patient to remain off of anticoagulation given pericardial effusion and pericardiocentesis. Colchicine added. With improvement in blood pressure, will start low-dose metoprolol. DVT prophylaxis: Subcutaneous Lovenox to be ordered 04/02/2024 Admission and Anticipated Discharge Date Admission Date: March 30, 2024 Subjective Patient seen in cardiology follow-up. He states that he feels very well. He states that his breathing is better than it has been for a month. There has been little residual drainage from his pericardiocentesis catheter over the weekend, follow-up echocardiogram 04/01/2024 and again today 04/02/2024 reveals small residual circumferential pericardial effusion without tamponade, stable findings. Telemetry reveals sinus rhythm in the 70s. Recurrent atrial fibrillation noted overnight last night and he converted back to sinus rhythm on 04/02/2024 at 2348. Physical Exam Constitutional: WD/WN, vitals as above Respiratory: normal respiratory effort, lungs clear to auscultation Cardiovascular: RRR, no murmur, no edema Gastrointestinal (Abdomen): normal bowel sounds, soft, nontender, no hepatosplenomegaly Neurologic: PERRL, EOMI, accommodation nl, no face palsy, no dysarthria Results & Data Vital Signs (Past 12 Hours) Vital Signs Temp Pulse Resp BP Pulse Ox O2 Del Method O2 Del Method 04/02/24 11:12 77 20 120/68 94 04/02/24 10:06 80 22 118/71 93 04/02/24 08:06 91 H 23 109/66 90 04/02/24 08:00 37 C 04/02/24 08:00 Room Air 04/02/24 08:00 75 04/02/24 08:00 Room Air 04/02/24 07:51 90 21 109/66 91 04/02/24 07:06 79 19 103/60 93 04/02/24 06:09 79 20 103/63 93 04/02/24 05:54 83 21 94 04/02/24 05:45 92/55 L 04/02/24 05:42 74 18 94 04/02/24 05:15 79 18 93 04/02/24 04:45 112/59 L 04/02/24 04:33 76 18 94 04/02/24 04:30 102/62 04/02/24 04:15 113/66 04/02/24 04:12 81 21 93 04/02/24 04:00 36.8 C 04/02/24 03:45 93 H 18 93 04/02/24 03:45 129/75 04/02/24 03:03 75 17 95 04/02/24 02:45 116/63 04/02/24 02:26 83 18 93 04/02/24 02:15 101/60 04/02/24 02:02 88 19 93 Laboratory Results CBC 04/02/24 Range/Units 08:18 WBC 10.47 (4.8-10.8) K/ul RBC 3.37 L (4.70-6.10) M/uL Hgb 12.4 L (14.0-18.0) g/dl Hct 35.1 L (42.0-52.0) % Plt Count 303 (130-400) K/uL Neut # (Auto) 7.95 H (1.40-6.50) K/uL Lymph # (Auto) 0.78 L (1.20-3.40) K/uL Brooks # (Auto) 1.14 H (0.11-0.59) K/uL Eos # (Auto) 0.38 (0.00-0.50) K/uL Baso # (Auto) 0.06 (0.00-0.20) K/uL Comprehensive Metabolic Panel 04/02/24 Range/Units 08:18 Sodium 133 L (136-145) mmol/L Potassium 3.6 (3.5-5.1) mmol/L Chloride 100 (98-107) mmol/L Carbon Dioxide 25 (21-32) mmol/L BUN 5 L (6-23) mg/dl Creatinine 0.88 (0.6-1.4) mg/dl Glucose 125 H (70-99(Fasting)) mg/dl Calcium 8.3 L (8.6-10.3) mg/dl Intake and Output 04/01/24 04/02/24 04/02/24 22:59 06:59 14:59 Intake Total 430 / 990 200 / 990 350 / 350 Output Total 2024 725 / 3075 2 / 2 Balance -1595 / -2085 -525 / -2085 348 / 348 Intake: IV 200 / 400 200 / 400 100 / 100 Doxycycline Hyclate 100 mg In 100 / 200 100 / 200 Dextrose 5% Mini-B 100 ml @ 50 mls/hr IV Q12H [facility] Rx#:[id number] Piperacillin/Tazobactam 4.5 gm 100 / 200 100 / 200 100 / 100 In Dextrose 5% Mini-B 100 ml @ 25 mls/hr IV Q8H [facility] Rx#: [id number] Oral 230 / 590 250 / 250 Output: Urine 2024 72 / 3075 # Bowel Movements 2 / 2 Other: # Unmeasured Voids 1 Weight 61.2 kg Weight Measurement Method Built in [facility]
[2024-04-02] MEDS: METOPROLOL TARTRATE 25 MG TAB PO ONE (15:05)
[2024-04-02] MEDS: ENOXAPARIN INJ 40 MG/0.4 ML SYR SQ SCH (15:06)
--- NOTE | 2024-04-02 15:06 | Hospitalist Progress Note ---
Date of Service April 02, 2024 Assessment & Plan (1) Pericardial effusion: Plan: Presented with not feeling well for about 10 days with achy abdomen and watery diarrhea,near syncope and dehydration Noted to have massive pericardial effusion with tamponade on studies Status post 480 mL of pericardiocentesis-tests from the fluid have been pending The cause of effusion remains to be determined determined Appreciate cardiology input and recommendation Clinically a little better Test results from the pericardiocentesis fluid are still pending Patient still complains some pain with deep breathing and movement Drainage from the pericardial tube has been decreasing and likely to be taken out by the chief lifestyle officer tomorrow Having attacks of paroxysmal A-fib with RVRmaking his blood pressure to go down Repeat chest x-ray showed cardiomegaly with increasing congestion Will try small dose of intravenous Lasix for now The pericardial biopsy is negative for any malignancy Further studies are pending Pericardial tube has been discontinued-the patient has been feeling much better Colchicine has been prescribed by the chief lifestyle officer from today Acute hypotension Complicated by dehydration and inability to take fluids and food due to history of oral cancer and recent irritation and jaw pain Could be the cause of presyncope Blood pressure has been improving following pericardiocentesis Blood pressure has been running low specially when the heart rate is up He received 750 mL of intravenous fluid last night Has been having some crackles at the bases but no shortness of breath at rest and saturating normally on room air Chest x-ray that showed cardiomegaly with worsening congestive heart failure- left larger than right pleural effusion with dependent consolidation. These have increased in size from previous Blood pressure has been stable-will continue current medications-small dose of beta-marlin (2) Severe sepsis: Plan: SIRS plus ARF plus lactic acidosis Possible infective sources have been ruled out so far CT of the abdomen pelvis and soft tissue CT of the neck remain fairly unremarkable Diarrhea seems to be stopped and C. difficile toxin still pending Blood cultures have been negative and UA was unremarkable no evidence of pneumonia on chest x-ray Has been getting empiric Dapto and Zosyn Will continue current antibiotic until reports from the pericardiocentesis fluid are available Antibiotics were discontinued yesterday as it was impaired Will restart IV Zosyn and and doxycycline presumed left lower lobe infiltration (3) Paroxysmal atrial fibrillation: Plan: Presented with atrial fibrillation and RVR Likely secondary to irritation from pericarditis/medical effusion Has had atrial fibrillation with rapid rate last night and required intravenous digoxin Beta-marlin cannot be given due to low blood pressure Heart rate seems to be controlled as of this morning Not on any anticoagulation the yet due to medication synthesis Heart rate is controlled now (4) Acute hyponatremia: Plan: Acute on chronic hyponatremia Chronic hyponatremia seems to be secondary to use of alcohol Sodium level is noted to be 121 on presentation Has been at 132 as of today 03/29/2024 Will monitor PRP-sodium level is stable at 129 Sodium level is improving which is at 133 today (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: Plan: 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 , now in remission CT of the soft tissue of the neck did not show any significant findings (6) Near syncope: Plan: Secondary to pericardial effusion with tamponade and hypotension Patient remains at rest in bed Will initiate PT OT on improvement Plan Other significant medical conditions are stable and as below: Hyperlipidemia, on statin Rx History of anal fistula/rectal abscess as per records Chronic anemia, hemoglobin better than baseline secondary to hemoconcentration Hyperglycemia rule out DM Past tobacco abuse DVT prophylaxis No pharmacologic anticoagulation due to status post pericardiocentesis CODE STATUS-full Admission and Anticipated Discharge Date Admission Date: March 30, 2024 Subjective 03/31/2024 The patient was seen and examined in ICU He is status post pericardiocentesis of 4 HTML of fluid Remains generally weak and lethargic and has been having occasional chest pain with breathing and activity Denies any nausea no vomiting No fever and no chills 04/01/2024 The patient was seen and examined in ICU He has been stable with weakness and tiredness Blood pressure has been running low below 90 systolic at times Has had attack of A-fib with RVR last night and received a dose of digoxin And also received 750 mL of normal saline to maintain blood Patient denies any symptoms at rest but complains today of chest pain with breathing and with movement Drainage from the pericardial to has been decreasing 04/02/2020 The patient was seen and examined in ICU He has been feeling much better today Has minimal pain in chest with deep breathing and movement Does not have any shortness of breath No fever and no chills, nausea and/or vomiting Review of Systems Review of Systems: All systems reviewed and are unremarkable except as noted below Physical Exam Physical Exam: Lying in bed with some discomfort secondary to chest pain but no shortness of breath Constitutional: + ill appearing and + thin Eyes: PERRL, conjunctivae normal, anicteric sclerae ENMT: external ear and nose normal, oropharynx normal Neck: trachea midline, no thyromegaly Respiratory: no respiratory distress Auscultation: + diminished lung sounds and + crackles (Minimal crackles at the bases) Cardiovascular: Rate/Rhythm: not tachycardic and not irregularly irregular Heart Sounds: normal S1 and normal S2; no murmur Extremities: no edema Gastrointestinal (Abdomen): Inspection/Auscultation: normal bowel sounds; abdomen not distended Percussion/Palpation: abdomen soft; abdomen nontender Musculoskeletal: No acute arthritis involving any of the joint Neurologic: normal touch/pain/proprioception and moves all extremities; no focal motor deficits Lymphatic: no cervical or axillary lymphadenopathy Results & Data Results & Data Vital Signs (Past 12 Hours) Vital Signs Temp Pulse Resp BP Pulse Ox O2 Del Method O2 Del Method 04/02/24 11:12 77 20 120/68 94 04/02/24 10:06 80 22 118/71 93 04/02/24 08:06 91 H 23 109/66 90 04/02/24 08:00 37 C 04/02/24 08:00 Room Air 04/02/24 08:00 75 04/02/24 08:00 Room Air 04/02/24 07:51 90 21 109/66 91 04/02/24 07:06 79 19 103/60 93 04/02/24 06:09 79 20 103/63 93 04/02/24 05:54 83 21 94 04/02/24 05:45 92/55 L 04/02/24 05:42 74 18 94 04/02/24 05:15 79 18 93 04/02/24 04:45 112/59 L 04/02/24 04:33 76 18 94 04/02/24 04:30 102/62 04/02/24 04:15 113/66 04/02/24 04:12 81 21 93 04/02/24 04:00 36.8 C 04/02/24 03:45 93 H 18 93 04/02/24 03:45 129/75 04/02/24 03:03 75 17 95 Laboratory Results Short CBC 04/02/24 Range/Units 08:18 WBC 10.47 (4.8-10.8) K/ul Hgb 12.4 L (14.0-18.0) g/dl Hct 35.1 L (42.0-52.0) % Plt Count 303 (130-400) K/uL BMP 04/02/24 08:18 Sodium 133 L Potassium 3.6 Chloride 100 Carbon Dioxide 25 BUN 5 L Creatinine 0.88 Glucose 125 H Calcium 8.3 L Medications Administered Current Inpatient Medications Acetaminophen (Acetaminophen 325 Mg Tab) 650 mg PO QID PRN PRN Reason: pain/fever Stop: 04/29/24 06:18 Last Admin: 04/01/24 07:53 Dose: 650 mg Atorvastatin Calcium (Atorvastatin 20 Mg Tab) 20 mg PO QPM [facility] Stop: 04/29/24 20:59 Last Admin: 03/30/24 21:09 Dose: Not Given Colchicine (Colchicine 0.6 Mg Tab) 0.6 mg PO QAM [facility] Stop: 05/02/24 08:59 Last Admin: 04/02/24 08:59 Dose: 0.6 mg Enoxaparin Sodium (Enoxaparin Inj 40 Mg/0.4 Ml Syr) 40 mg SQ QAM [facility] Stop: 05/02/24 14:29 Folic Acid (Folic Acid 1 Mg Tab) 1 mg PO QAM [facility] Stop: 04/29/24 08:59 Last Admin: 04/02/24 09:00 Dose: 1 mg Promethazine HCl 6.25 mg/ (Sodium Chloride) 50.25 mls @ 201 mls/hr IV Q6H PRN PRN Reason: Nausea And Vomiting Stop: 04/29/24 06:18 Lorazepam 1 mg/ Syringe 1 mls @ 2 mls/min IV ONE PRN; Protocol PRN Reason: EtoH Withdrawal AWSS 6-10 Piperacillin Sod/Tazobactam (Sod 4.5 gm/ Dextrose) 100 mls @ 25 mls/hr IV Q8H [facility]; Protocol Stop: 04/08/24 13:29 Last Infusion: 04/02/24 11:24 Dose: Infused Doxycycline Hyclate 100 mg/ (Dextrose) 100 mls @ 50 mls/hr IV Q12H [facility] Stop: 04/08/24 13:14 Last Admin: 04/02/24 13:40 Dose: 50 mls/hr Metoprolol Tartrate (Metoprolol Tartrate 25 Mg Tab) 12.5 mg PO BID [facility] Stop: 05/03/24 08:59 Multi-Ingredient Mouthwash/Gargle (First - Mouthwash Blm 119 Ml) 5 ml PO Q6H PRN PRN Reason: Sore Throat Stop: 04/30/24 08:14 Last Admin: 04/01/24 07:49 Dose: 5 ml Multivitamins (Multivitamin Tab) 1 tab PO QAM [facility] Stop: 04/29/24 08:59 Last Admin: 04/02/24 09:00 Dose: 1 tab Oxycodone HCl (Oxycodone Hcl Ir 5 Mg Tab (Immediate Release)) 5 mg PO Q4H PRN PRN Reason: Pain Stop: 04/13/24 06:18 Thiamine HCl (Thiamine Hcl 100 Mg Tab) [facility] [place]: 04/30/24 08:59 Last Admin: 04/02/24 09:00 Dose: 100 mg
--- NOTE | 2024-04-02 19:06 | XCELERA ---
[id number] [id number]
[2024-04-03 05:41] LABS: BUN Creatinine Ratio 6.2 (10-20); Calcium 8.5 mg/dl (8.6-10.3); Est GFR (Non-African American) 96.6 ml/min; Magnesium 1.5 mg/dl (1.7-2.4); Potassium 4.1 mmol/L (3.5-5.1)
[2024-04-03] MEDS: METOPROLOL TARTRATE 25 MG TAB PO SCH (07:21)
[2024-04-03] MEDS ORDERED: 0.2 MICRON FILTER SET 1 EACH IV STA (08:45)
[2024-04-03] MEDS ORDERED: STAT IV Infusion **Titration per Protocol STA (08:45)
--- NOTE | 2024-04-03 08:48 | Communication Note ---
Date of Service: April 03, 2024 Pt reverted back to AF this am. Now back in sinus. Pt is a poor candidate for anticoagulation given pericardial effusion. Proceed with rhythm control with amiodarone infusion, to start while in SR.
[2024-04-03] MEDS: AMIODARONE / D5W 150 MG/100 ML BAG IV STA (09:25)
[2024-04-03] MEDS: AMIODARONE IV BOLUS & DRIP IV STA (09:26)
[2024-04-03] MEDS: AMIODARONE / D5W 360 MG/200 ML BAG IV ONE (09:37)
[2024-04-03] MEDS: MAGNESIUM SULFATE / D5W 1 GM/100 ML BAG IV SCH (10:24)
[2024-04-03 11:27] LABS: Anti Nuclear Antibody Screen NEGATIVE (NEGATIVE)
--- NOTE | 2024-04-03 12:56 | Cardiology Progress Note ---
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 He was treated with chemotherapy and radiation therapy. He received 3 cycles of cisplatin and subsequent carboplatin because of ototoxicity, his last chemotherapy treatment was performed on 10/27/2023. Most recent PET scan revealed stable findings in January,. Patient presented with progressive symptoms of dyspnea over 1 month. Was found to have a large circumferential pericardial effusion with tamponade physiology for which he underwent emergent pericardiocentesis on 03/30/2024 yielding 480 cc of straw-colored pericardial fluid. Hypotension and jugular venous distention resolved post procedure. ESR obtained 04/02/2024 elevated at 52 mm/hr, CRP 8.78 mg/dL. Cytology of the pericardial fluid is negative for malignancy. The pericardial fluid was not sent for culture. Lyme screen was negative. DEMETRICE screen obtained 04/02/2024 is negative. Pericardiocentesis catheter removed on 04/02/2024. IV amiodarone initiated a.m. of 04/03/2024. Given pericardial effusion, most prudent to hold off on systemic anticoagulation. Titrate up metoprolol as tolerated. TSH, LFTs normal earlier this hospital stay. DVT prophylaxis: Subcutaneous Lovenox to be ordered 04/02/2024 Admission and Anticipated Discharge Date Admission Date: March 30, 2024 Subjective Patient states he is feeling well. Denies chest discomfort, denies shortness of breath, denies any subjective palpitations overnight or thus far today. Per review of telemetry he had multiple episodes of atrial fibrillation with rapid ventricular response overnight last night and again this morning with subsequent spontaneous conversion to sinus rhythm. This prompted initiation of IV amiodarone this morning, and currently he is in sinus rhythm in the 80s. Blood pressure remains a little on the lower side with systolic blood pressure in the 100 to 110 mmHg range. Review of Systems Review of Systems: All systems reviewed & are unremarkable except as noted in HPI & below Physical Exam Constitutional: WD/WN, vitals as above Respiratory: normal respiratory effort, lungs clear to auscultation Cardiovascular: RRR, no murmur, no edema Gastrointestinal (Abdomen): normal bowel sounds, soft, nontender, no hepatosplenomegaly Neurologic: PERRL, EOMI, accommodation nl, no face palsy, no dysarthria Results & Data Vital Signs (Past 12 Hours) Vital Signs Temp Pulse Pulse Resp BP BP Pulse Ox 04/03/24 10:52 36.9 C 04/03/24 09:30 74 16 102/70 96 04/03/24 08:50 81 18 98/59 L 95 04/03/24 08:30 109 H 20 83/58 L 92 04/03/24 08:00 118 H 22 99/59 L 91 04/03/24 07:55 04/03/24 07:55 127 H 04/03/24 07:26 04/03/24 07:24 132 H 22 106/72 94 04/03/24 07:16 142 H 91/58 L 04/03/24 07:16 91/58 L 04/03/24 07:16 91/58 L 04/03/24 07:16 91/58 L 04/03/24 04:00 37.2 C 92 H 16 90/48 L 93 Pulse Ox O2 Del Method O2 Del Method 04/03/24 10:52 04/03/24 09:30 Room Air 04/03/24 08:50 Room Air 04/03/24 08:30 Room Air 04/03/24 08:00 Room Air 04/03/24 07:55 94 Room Air 04/03/24 07:55 04/03/24 07:26 Room Air 04/03/24 07:24 04/03/24 07:16 04/03/24 07:16 04/03/24 07:16 04/03/24 07:16 04/03/24 04:00 Room Air Laboratory Results Comprehensive Metabolic Panel 04/03/24 Range/Units 04:49 Sodium 132 L (136-145) mmol/L Potassium 4.1 (3.5-5.1) mmol/L Chloride 102 (98-107) mmol/L Carbon Dioxide 19 L (21-32) mmol/L BUN 5 L (6-23) mg/dl Creatinine 0.81 (0.6-1.4) mg/dl Glucose 96 (70-99(Fasting)) mg/dl Calcium 8.5 L (8.6-10.3) mg/dl Intake and Output 04/02/24 04/03/24 04/03/24 22:59 06:59 14:59 Intake Total 200 / 850 200 / 850 571.667 / 571.667 Output Total 401 / 704 301 / 704 Balance -201 / 146 -101 / 146 570.667 / 570.667 Intake: IV 200 / 600 200 / 600 291.667 / 291.667 Amiodarone / D5w 150 mg In 100 100 / 100 ml @ 600 mls/hr IV NOW STA Rx#: [id number] Doxycycline Hyclate 100 mg In 100 / 200 100 / 200 Dextrose 5% Mini-B 100 ml @ 50 mls/hr IV Q12H [facility] Rx#:[id number] Magnesium Sulfate / D5w 1 gm In 91.667 / 91.667 100 ml @ 50 mls/hr IV Q2H [facility] Rx#:[id number] Piperacillin/Tazobactam 4.5 gm 100 / 300 100 / 300 100 / 100 In Dextrose 5% Mini-B 100 ml @ 25 mls/hr IV Q8H [facility] Rx#: [id number] Oral 280 / 280 Output: Urine 400 / 700 300 / 700 # Bowel Movements Other: # Unmeasured Voids
[2024-04-03] MEDS: AMIODARONE / D5W 360 MG/200 ML BAG IV SCH (14:18)
--- NOTE | 2024-04-03 14:19 | Hospitalist Progress Note ---
Date of Service April 03, 2024 Assessment & Plan (1) Pericardial effusion: Plan: Presented with not feeling well for about 10 days with achy abdomen and watery diarrhea,near syncope and dehydration Noted to have massive pericardial effusion with tamponade on studies Status post 480 mL of pericardiocentesis-tests from the fluid have been pending The cause of effusion remains to be determined determined Appreciate cardiology input and recommendation Clinically a little better Patient still complains some pain with deep breathing and movement Drainage from the pericardial tube has been decreasing and likely to be taken out by the engine inspector tomorrow Having attacks of paroxysmal A-fib with RVRmaking his blood pressure to go down Repeat chest x-ray showed cardiomegaly with increasing congestion Will try small dose of intravenous Lasix for now The pericardial biopsy is negative for any malignancy, pericardial amylase level was 11 units/L And ice cream and Lyme titer were negative as well Further studies on pericardiocentesis fluid are pending Pericardial tube has been discontinued-the patient has been feeling much better Colchicine has been prescribed by the engine inspector Patient remains free from any chest pain Acute hypotension Complicated by dehydration and inability to take fluids and food due to history of oral cancer and recent irritation and jaw pain Could be the cause of presyncope Blood pressure has been improving following pericardiocentesis Blood pressure has been running low specially when the heart rate is up He received 750 mL of intravenous fluid last night Has been having some crackles at the bases but no shortness of breath at rest and saturating normally on room air Chest x-ray that showed cardiomegaly with worsening congestive heart failure- left larger than right pleural effusion with dependent consolidation. These have increased in size from previous Blood pressure has been stable-will continue current medications-small dose of beta-marlin (2) Severe sepsis: Plan: SIRS plus ARF plus lactic acidosis Possible infective sources have been ruled out so far CT of the abdomen pelvis and soft tissue CT of the neck remain fairly unremarkable Diarrhea seems to be stopped and C. difficile toxin still pending Blood cultures have been negative and UA was unremarkable no evidence of pneumonia on chest x-ray Has been getting empiric Dapto and Zosyn Will continue current antibiotic until reports from the pericardiocentesis fluid are available Antibiotics were discontinued yesterday as it was Will restart IV Zosyn and and doxycycline presumed left lower lobe infiltration Will discontinue intravenous Zosyn and continue doxycycline for for now Plan to continue antibiotic for a total of 10 days from admission. (3) Paroxysmal atrial fibrillation: Plan: Presented with atrial fibrillation and RVR Likely secondary to irritation from pericarditis/medical effusion Has had atrial fibrillation with rapid rate last night and required intravenous digoxin Beta-marlin cannot be given due to low blood pressure Heart rate seems to be controlled as of this morning Not on any anticoagulation the yet due to medication synthesis He was going in and out of A-fib with RVR and received intravenous amiodarone Rate is controlled now and reverted to sinus rhythm Further dose of amiodarone as per engine inspector if recommended (4) Acute hyponatremia: Plan: Acute on chronic hyponatremia Chronic hyponatremia seems to be secondary to use of alcohol Sodium level is noted to be 121 on presentation Has been at 132 as of today 03/29/2024 Will monitor PRP-sodium level is stable at 129 Sodium level is improving which is at 132 on 04/03/2024 (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: Plan: 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 , now in remission CT of the soft tissue of the neck did not show any significant findings (6) Near syncope: Plan: Secondary to pericardial effusion with tamponade and hypotension Patient remains at rest in bed Will initiate PT OT on improvement Plan Other significant medical conditions are stable and as below: Hyperlipidemia, on statin Rx History of anal fistula/rectal abscess as per records Chronic anemia, hemoglobin better than baseline secondary to hemoconcentration Hyperglycemia rule out DM Past tobacco abuse DVT prophylaxis No pharmacologic anticoagulation due to status post pericardiocentesis CODE STATUS-full Admission and Anticipated Discharge Date Admission Date: March 30, 2024 Subjective 03/31/2024 The patient was seen and examined in ICU He is status post pericardiocentesis of 4 HTML of fluid Remains generally weak and lethargic and has been having occasional chest pain with breathing and activity Denies any nausea no vomiting No fever and no chills 04/01/2024 The patient was seen and examined in ICU He has been stable with weakness and tiredness Blood pressure has been running low below 90 systolic at times Has had attack of A-fib with RVR last night and received a dose of digoxin And also received 750 mL of normal saline to maintain blood Patient denies any symptoms at rest but complains today of chest pain with [place] thing and with movement Drainage from the pericardial to has been decreasing 04/02/2024 The patient was seen and examined in ICU He has been feeling much better today Has minimal pain in chest with deep breathing and movement Does not have any shortness of breath No fever and no chills, nausea and/or vomiting 04/03/2024 The patient was seen and examined in ICU with telemetry status He has been having paroxysmal atrial fibrillation with RVR Denies any chest pain or shortness of breath Remain generally weak Review of Systems Review of Systems: All systems reviewed and are unremarkable except as noted below Physical Exam Physical Exam: Lying in bed with some discomfort secondary to chest pain but no shortness of breath Constitutional: + ill appearing and + thin Eyes: PERRL, conjunctivae normal, anicteric sclerae ENMT: external ear and nose normal, oropharynx normal Neck: trachea midline, no thyromegaly Respiratory: no respiratory distress Auscultation: + diminished lung sounds and + crackles (Minimal crackles at the bases) Cardiovascular: Rate/Rhythm: not tachycardic and not irregularly irregular Heart Sounds: normal S1 and normal S2; no murmur Extremities: no edema Gastrointestinal (Abdomen): Inspection/Auscultation: normal bowel sounds; abdomen not distended Percussion/Palpation: abdomen soft; abdomen nontender Musculoskeletal: No acute arthritis involving any of the joint Neurologic: normal touch/pain/proprioception and moves all extremities; no focal motor deficits Lymphatic: no cervical or axillary lymphadenopathy Results & Data Results & Data Vital Signs (Past 12 Hours) Vital Signs Temp Pulse Pulse Resp BP BP Pulse Ox 04/03/24 12:36 78 22 04/03/24 12:00 83 20 107/60 04/03/24 10:52 36.9 C 04/03/24 09:30 74 16 102/70 96 04/03/24 08:50 81 18 98/59 L 95 04/03/24 08:30 109 H 20 83/58 L 92 04/03/24 08:00 118 H 22 99/59 L 91 04/03/24 07:55 04/03/24 07:55 127 H 04/03/24 07:26 04/03/24 07:24 132 H 22 106/72 94 04/03/24 07:16 142 H 91/58 L 04/03/24 07:16 91/58 L 04/03/24 07:16 91/58 L 04/03/24 07:16 91/58 L 04/03/24 04:00 37.2 C 92 H 16 90/48 L 93 Pulse Ox O2 Del Method O2 Del Method 04/03/24 12:36 04/03/24 12:00 04/03/24 10:52 04/03/24 09:30 Room Air 04/03/24 08:50 Room Air 04/03/24 08:30 Room Air 04/03/24 08:00 Room Air 04/03/24 07:55 94 Room Air 04/03/24 07:55 04/03/24 07:26 Room Air 04/03/24 07:24 04/03/24 07:16 04/03/24 07:16 04/03/24 07:16 04/03/24 07:16 04/03/24 04:00 Room Air Laboratory Results [facility] 04/03/24 04:49 Sodium 132 L Potassium 4.1 Chloride 102 Carbon Dioxide 19 L BUN 5 L Creatinine 0.81 Glucose 96 Calcium 8.5 L Medications Administered Current Inpatient Medications Acetaminophen (Acetaminophen 325 Mg Tab) 650 mg PO QID PRN PRN Reason: pain/fever Stop: 04/29/24 06:18 Last Admin: 04/01/24 07:53 Dose: 650 mg Atorvastatin Calcium (Atorvastatin 20 Mg Tab) 20 mg PO QPM [facility] Stop: 04/29/24 20:59 Last Admin: 03/30/24 21:09 Dose: Not Given Colchicine (Colchicine 0.6 Mg Tab) 0.6 mg PO QAM [facility] Stop: 05/02/24 08:59 Last Admin: 04/03/24 07:21 Dose: 0.6 mg Enoxaparin Sodium (Enoxaparin Inj 40 Mg/0.4 Ml Syr) 40 mg SQ QAM [facility] Stop: 05/02/24 14:29 Last Admin: 04/03/24 07:22 Dose: 40 mg Folic Acid (Folic Acid 1 Mg Tab) 1 mg PO QAM [facility] Stop: 04/29/24 08:59 Last Admin: 04/03/24 07:21 Dose: 1 mg Promethazine HCl 6.25 mg/ (Sodium Chloride) 50.25 mls @ 201 mls/hr IV Q6H PRN PRN Reason: Nausea And Vomiting Stop: 04/29/24 06:18 Lorazepam 1 mg/ Syringe 1 mls @ 2 mls/min IV ONE PRN; Protocol PRN Reason: EtoH Withdrawal AWSS 6-10 Doxycycline Hyclate 100 mg/ (Dextrose) 100 mls @ 50 mls/hr IV Q12H [facility] Stop: 04/08/24 13:14 Last Infusion: 04/03/24 02:20 Dose: Infused Amiodarone HCl/Dextrose (Nexterone / D5w) 360 mg in 200 mls @ 33.333 mls/hr IV ONE ONE Stop: 04/03/24 14:54 Last Admin: 04/03/24 09:37 Dose: 1 mg/min, 33.3 mls/hr Amiodarone HCl/Dextrose (Nexterone / D5w) 360 mg in 200 mls @ 16.667 mls/hr IV .Q12H [facility] Stop: 05/03/24 14:44 Metoprolol Tartrate (Metoprolol Tartrate 25 Mg Tab) 12.5 mg PO BID [facility] Stop: 05/03/24 08:59 Last Admin: 04/03/24 07:21 Dose: 12.5 mg Multi-Ingredient Mouthwash/Gargle (First - Mouthwash Blm 119 Ml) 5 ml PO Q6H PRN PRN Reason: Sore Throat Stop: 04/30/24 08:14 Last Admin: 04/01/24 07:49 Dose: 5 ml Multivitamins (Multivitamin Tab) 1 tab PO QAM [facility] Stop: 04/29/24 08:59 Last Admin: 04/03/24 07:21 Dose: 1 tab Oxycodone HCl (Oxycodone Hcl Ir 5 Mg Tab (Immediate Release)) 5 mg PO Q4H PRN PRN Reason: Pain Stop: 04/13/24 06:18 Thiamine HCl (Thiamine Hcl 100 Mg Tab) 100 mg PO QAM [facility] Stop: 04/30/24 08:59 Last Admin: 04/03/24 07:21 Dose: 100 mg
[2024-04-04 06:04] LABS: Albumin Globulin Ratio 1.1 (0.9-2); Albumin Level 2.9 gm/dl (3.4-5.0); BUN Creatinine Ratio 5.5 (10-20); Bilirubin,Total 0.3 mg/dl (0.2-1.0); Calcium 8.5 mg/dl (8.6-10.3); Creatinine Clr Calc Pharmacy 91.5 ml/min; Est GFR (African American) 116.9 ml/min; Est GFR (Non-African American) 100.8 ml/min; Globulin 2.7 gm/dl (2.5-4.0); Potassium 3.7 mmol/L (3.5-5.1); Total Protein 5.6 gm/dl (6.0-8.3)
[2024-04-04 06:05] LABS: Hematocrit (blood only) 35.6 % (42.0-52.0); Hemoglobin 12.4 g/dl (14.0-18.0); Mean Corpuscular Hemoglobin 35.8 pg (25.0-34.0); Mean Corpuscular Hgb Conc 34.8 g/dL (32.0-36.0); Mean Corpuscular Volume 102.9 fL (80.0-100.0); Mean Platelet Volume 10.1 fL (9.4-12.4); Platelet Count 330 K/uL (130-400); RDW Coefficient of Variation 10.4 % (11.5-14.5); RDW Standard Deviation 38.8 fL (36.4-46.3); Red Blood Count 3.46 M/uL (4.70-6.10); White Blood Count 13.61 K/ul (4.8-10.8)
[2024-04-04] MEDS: METOPROLOL TARTRATE 25 MG TAB PO SCH (09:25)
[2024-04-04] MEDS: DOXYCYCLINE HYCLATE 100 MG CAP PO SCH (09:56)
--- NOTE | 2024-04-04 11:40 | Cardiology Progress Note ---
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 He was treated with chemotherapy and radiation therapy. He received 3 cycles of cisplatin and subsequent carboplatin because of ototoxicity, his last chemotherapy treatment was performed on 10/27/2023. Most recent PET scan revealed stable findings in January,. Patient presented with progressive symptoms of dyspnea over 1 month. Was found to have a large circumferential pericardial effusion with tamponade physiology for which he underwent emergent pericardiocentesis on 03/30/2024 yielding 480 cc of straw-colored pericardial fluid. Hypotension and jugular venous distention resolved post procedure. ESR obtained 04/02/2024 elevated at 52 mm/hr, CRP 8.78 mg/dL. Cytology of the pericardial fluid is negative for malignancy. The pericardial fluid was not sent for culture. Lyme screen was negative. DEMETRICE screen obtained 04/02/2024 is negative. Pericardiocentesis catheter removed on 04/02/2024. IV amiodarone initiated a.m. of 04/03/2024. Given pericardial effusion, most prudent to hold off on systemic anticoagulation. Titrate up metoprolol as tolerated. TSH, LFTs normal earlier this hospital stay. 04/04/2024: Discontinue IV amiodarone and transition to amiodarone 200 mg p.o. twice daily. Given possibility of inflammatory pericardial effusion, continue colchicine 0.6 mg p.o. daily to complete 3-month course to help prevent recurrence. Also start prednisone, low tapering dose, starting with 20 mg daily x 1 week, then 10 mg daily x 1 week, 5 mg daily x 1 week and then discontinue. Repeat chest x-ray today for reassessment of left pleural effusion. Zosyn discontinued on 04/03/2024, remains on IV doxycycline, will likely transition this to oral doxycycline at discharge for possible underlying pneumonia/bronchitis. Patient eager for discharge, and I think would be reasonable for him to be discharged later today with plans for outpatient echo in a week which I will arrange, and follow-up thereafter. Recommend proton pump inhibitor for GI prophylaxis while on prednisone, if there omeprazole 20 mg or Protonix 40 mg daily, as alternative, could consider famotidine 20 mg p.o. twice daily. DVT prophylaxis: Subcutaneous Lovenox started 04/02/2024 Admission and Anticipated Discharge Date Admission Date: March 30, 2024 Subjective Patient seen in cardiology follow-up of pericardial effusion. He states he is feeling well. Denies chest discomfort or shortness of breath. He is eager for discharge. Telemetry at the time of my assessment revealed sinus rhythm in the 70s however he has had brief runs of paroxysmal atrial fibrillation overnight last night and this morning as well. He has been asymptomatic however many for atrial fibrillation standpoint. He remains on amiodarone infusion at present. Physical Exam Constitutional: WD/WN, vitals as above Respiratory: normal respiratory effort, lungs clear to auscultation Cardiovascular: RRR, no murmur, no edema Gastrointestinal (Abdomen): normal bowel sounds, soft, nontender, no hepatosplenomegaly Neurologic: PERRL, EOMI, accommodation nl, no face palsy, no dysarthria Results & Data Vital Signs (Past 12 Hours) Vital Signs Temp Pulse Pulse Resp BP Pulse Ox O2 Del Method 04/04/24 03:00 36.7 C 94 H 20 132/67 94 Room Air 04/04/24 00:00 72 Laboratory Results Cardiac Enzymes 04/04/24 Range/Units 05:25 AST 18 (13-39) U/L CBC 04/04/24 Range/Units 05:25 WBC 13.61 H (4.8-10.8) K/ul RBC 3.46 L (4.70-6.10) M/uL Hgb 12.4 L (14.0-18.0) g/dl Hct 35.6 L (42.0-52.0) % Plt Count 330 (130-400) K/uL Comprehensive Metabolic Panel 04/04/24 Range/Units 05:25 Sodium 132 L (136-145) mmol/L Potassium 3.7 (3.5-5.1) mmol/L Chloride 102 (98-107) mmol/L Carbon Dioxide 22 (21-32) mmol/L BUN 4 L (6-23) mg/dl Creatinine 0.73 (0.6-1.4) mg/dl Glucose 107 H (70-99(Fasting)) mg/dl Calcium 8.5 L (8.6-10.3) mg/dl AST 18 (13-39) U/L ALT 11 (7-52) U/L Alkaline Phosphatase 59 (34-104) U/L Total Protein 5.6 L (6.0-8.3) gm/dl Albumin 2.9 L (3.4-5.0) gm/dl Intake and Output 04/03/24 04/04/24 04/04/24 22:59 06:59 14:59 Intake Total 400 / 1271.667 300 / 1271.667 Output Total 301 / 827 525 / 827 Balance 99 / 444.667 -225 / 444.667 Intake: IV 400 / 991.667 300 / 991.667 Amiodarone / D5w 360 mg In 200 200 / 400 200 / 400 ml @ 0.5 MG/MIN 16.667 mls/hr IV .Q12H [facility] Rx#:[id number] Doxycycline Hyclate 100 mg In 100 / 200 100 / 200 Dextrose 5% Mini-B 100 ml @ 50 mls/hr IV Q12H [facility] Rx#:[id number] Magnesium Sulfate / D5w 1 gm In 100 / 191.667 100 ml @ 50 mls/hr IV Q2H [facility] Rx#:[id number] Output: Urine 300 / 825 525 / 825 # Bowel Movements 1 / 2 Other: # Unmeasured Voids 1 Weight 60.1 kg Weight Measurement Method Built in [facility]
[2024-04-04] MEDS ORDERED: PANTOprazole 40 MG TAB PO SCH (11:45)
[2024-04-04] MEDS: predniSONE 20 MG TAB PO ONE (12:17)
[2024-04-04] MEDS: AMIODARONE 200 MG TAB PO ONE (12:20)
--- NOTE | 2024-04-04 14:19 | XRay Report ---
TWO VIEW CHEST CLINICAL HISTORY: Left pleural effusion. FINDINGS: PA and lateral chest radiographs are compared to study dated 04/01/2024. A pericardial drain has been removed. The cardiomediastinal silhouette has decreased in size. Pulmonary vascular congest ion has improved. There are left larger than right pleural effusions with dependent consolidation. Th ere is no pneumothorax. The bony thorax appears intact. IMPRESSION: 1. A pericardial drain has been removed and the cardiac silhouette has decreased in size. 2. Pulmonary vascular congestion is improved. 3. Left larger than right pleural effusions with dependent consolidation. The left pleural effusion a ppears decreased in size from previous ACT 112: Negative or not required by law. Electronically signed by: Paul Mariano M.D. 04/04/2024 2:17 PM
--- NOTE | 2024-04-04 15:48 | Hospitalist Progress Note ---
Date of Service April 04, 2024 Assessment & Plan (1) Pericardial effusion: Plan: Pericardial effusion Paroxysmal atrial fibrillation Cardiac tamponade --POA Possible pericarditis S/P emergent pericardiocentesis on 03/30/2024--- 450 mL of pericardial fluid removed. Hypertension, JVD resolved postprocedure --CXR:Enlarged cardiac silhouette. This corresponds to a pericardial effusion when correlated with today's CT scan. The pericardium appears thickened on CT. Correlate clinically for evidence of pericarditis.Small pleural effusions with dependent atelectasis. --ECHO: Large circumferential pericardial effusion with moderate organization anteriorly. The diastolic compression of the right atrium is suggestive of cardiac tamponade. Dilated inferior vena cava with reduced collapsibility with sniff indicates elevated right atrial pressure of 15 mmHg. Left ventricular EF 65 to 70%. --ESR 52, CRP 8.78 --Biofire: Negative Cytology of pericardial fluid negative for malignancy Lyme screen negative DEMETRICE negative Catheter removed on 04/02/2024 Started on amiodarone 200 mg twice daily Currently no anticoagulation given pericardial effusion Started on colchicine 0.6 mg daily Also on prednisone taper course Appreciate cardiology input Started on PPI for GI prophylaxis Needs follow-up with cardiology in 1 week with repeat echo Acute hypotension Due to above Complicated by dehydration and inability to take fluids and food due to history of oral cancer and recent irritation and jaw pain Could be the cause of presyncope BP stable currently (2) Severe sepsis: Plan: SIRS plus ARF plus lactic acidosis No clear source of infection identified CT of the abdomen pelvis and soft tissue CT of the neck remain fairly unremarkable No recurrence of diarrhea--stool studies pending Blood cultures remain negative UA not suggestive of UTI Empirically Dapto and Zosyn>> transition to p.o. 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 --CT Neck:Pharynx: The unenhanced radial soft tissues are grossly normal in appearance. The pharyngeal airway is widely patent. There is no evidence of mass lesion. The vocal cords are symmetric. The parapharyngeal fat is well maintained. The prevertebral/retropharyngeal soft tissues are within normal limits. The epiglottis is normal. Lymphadenopathy: No cervical lymphadenopathy is seen.The skeletal structures are osteopenic. Imaged portions of the calvarium at the skull base are within normal limits. The cervical spine appears intact noting multilevel spondylosis. Mild degenerative change is noted in the tempor omandibular joints. 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 S/P chemotherapy and radiation therapy Received 3 cycles of cisplatin and subsequent carboplatin because of ototoxicity Last chemotherapy treatment was performed on 10/27/2023 -- Currently in remission (6) Near syncope: Plan: Secondary to pericardial effusion with tamponade and hypotension Stable Plan Other significant medical conditions are stable and as below: Hyperlipidemia, on statin Rx History of anal fistula/rectal abscess as per records Chronic anemia, hemoglobin better than baseline secondary to hemoconcentration Hyperglycemia ruled out DM Past tobacco abuse DVT prophylaxis No pharmacologic anticoagulation due to status post pericardiocentesis CODE STATUS Full Code Disposition Home Admission and Anticipated Discharge Date Admission Date: March 30, 2024 Subjective Patient is seen and examined at bedside States feeling well today Offers no new complaints Discussed with cardiology today Denies any chest pain, dyspnea, dizziness, nausea, vomiting, abdominal pain Plan to be discharged home today Review of Systems Review of Systems: All systems reviewed & are unremarkable except as noted in Subjective Physical Exam Physical Exam: Physical Exam: Vitals signs as noted above General Appearance:Thin, chronic ill appearing, no apparent distress Head: normocephalic, Atraumatic Eyes: normal inspection, EOMI Neck: supple, Trachea midline Respiratory/Chest: Decreased breath sounds, CTA, No accessory muscle use Cardiovascular: S1, S2, No murmur Abdomen/GI:Soft, Non tender, Bowel sounds present Extremities/Musculoskeletal:normal inspection, no edema Neurologic/Psych:AAOX3, grossly no focal neurological deficits Skin: normal color, warm Results & Data Results & Data Vital Signs (Past 12 Hours) Vital Signs Pulse 04/04/24 08:00 101 H Laboratory Results Short CBC 04/04/24 Range/Units 05:25 WBC 13.61 H (4.8-10.8) K/ul Hgb 12.4 L (14.0-18.0) g/dl Hct 35.6 L (42.0-52.0) % Plt Count 330 (130-400) K/uL BMP 04/04/24 05:25 Sodium 132 L Potassium 3.7 Chloride 102 Carbon Dioxide 22 BUN 4 L Creatinine 0.73 Glucose 107 H Calcium 8.5 L Liver Function 04/04/24 Range/Units 05:25 Total Bilirubin 0.3 (0.2-1.0) mg/dl AST 18 (13-39) U/L ALT 11 (7-52) U/L Alkaline Phosphatase 59 (34-104) U/L Albumin 2.9 L (3.4-5.0) gm/dl
--- NOTE | 2024-04-04 15:59 | Discharge Summary ---
Date of Service April 04, 2024 Admission HPI Per Admitting Provider History obtained from patient and records. Medical history significant for hypertension, hyperlipidemia, history of anal fistula/rectal abscess, oropharyngeal cancer ongoing chemoradiation, chronic hyponatremia, chronic anemia (baseline hemoglobin of 10), alcohol abuse, past tobacco abuse. 10-day history of not feeling well, feeling sick, achy abdominal pain with watery diarrhea. Increased left jaw pain more than usual. No chest pain, no SOB, no cough symptoms. Near syncope at home. Lowest SBP of 70s documented at the ER. Rapid A-fib later noted on the monitor. 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 Admission Exam Per Admitting Provider GENERAL: Slightly uncomfortable, chronically ill, no respiratory distress SKIN: Pallor, warm HEENT: Pale palpebral conjunctivae, no ptosis, dry buccal mucosa, tenderness left jaw NECK : Supple, no tenderness CHEST : Decreased breath sounds, no tenderness HEART : Irregular, no obvious murmurs ABDOMEN: Some distention, minimal hypogastric tenderness EXTREMITIES : No LE swelling/tenderness, no other conspicuous deformities noted NEUROLOGIC : Coherent, no facial asymmetry, no other gross focality Principal Diagnosis Pericardial effusion Paroxysmal atrial fibrillation Cardiac tamponade Possible pericarditis Discharge Data Allergies Allergy/AdvReac Type Severity Reaction Status Date / Time pollen extracts Allergy Intermediate ITCHY Verified 03/30/24 02:44 EYES, SNEEZING Poison Clare Extract/Poison Allergy Severe "CAN BE 20 Uncoded 03/30/24 02:44 [place] Extra FEET AWAY AND STILL GET IT"-BLISTERS, HIVES Consultations 03/30/24 04:19 ED Decision to Admit Stat 03/30/24 08:13 Consult Cardiology Routine Procedures Performed Operation Date: 03/30/24 09:30 Actual Procedures p Pericardiocentesis - Matt Smith MD, PhD s Fluoroscopy Up To 1 Hour - Matt Smith MD, PhD Ordered Studies 03/30/24 02:47 CT abd pelvis wo con Stat CT head/brain wo con Stat 03/30/24 06:07 CT soft tissue neck wo con Stat 03/30/24 09:44 CL Cath Imgs for PACS use only Stat Hospital Course (1) Pericardial effusion: Pericardial effusion Paroxysmal atrial fibrillation Cardiac tamponade --POA Possible pericarditis S/P emergent pericardiocentesis on 03/30/2024--- 450 mL of pericardial fluid removed. Hypertension, JVD resolved postprocedure --CXR:Enlarged cardiac silhouette. This corresponds to a pericardial effusion when correlated with today's CT scan. The pericardium appears thickened on CT. Correlate clinically for evidence of pericarditis.Small pleural effusions with dependent atelectasis. --ECHO: Large circumferential pericardial effusion with moderate organization a nteriorly. The diastolic compression of the right atrium is suggestive of cardiac tamponade. Dilated inferior vena cava with reduced collapsibility with sniff indicates elevated right atrial pressure of 15 mmHg. Left ventricular EF 65 to 70%. --ESR 52, CRP 8.78 --Biofire: Negative Cytology of pericardial fluid negative for malignancy Lyme screen negative DEMETRICE negative Catheter removed on 04/02/2024 Started on amiodarone 200 mg twice daily Currently no anticoagulation given pericardial effusion Started on colchicine 0.6 mg daily Also on prednisone taper course Appreciate cardiology input Started on PPI for GI prophylaxis Needs follow-up with cardiology in 1 week with repeat echo Acute hypotension Due to above Complicated by dehydration and inability to take fluids and food due to history of oral cancer and recent irritation and jaw pain Could be the cause of presyncope BP stable currently (2) Severe sepsis: SIRS plus ARF plus lactic acidosis No clear source of infection identified CT of the abdomen pelvis and soft tissue CT of the neck remain fairly unremarkable No recurrence of diarrhea--stool studies pending Blood cultures remain negative UA not suggestive of UTI Empirically Dapto and Zosyn>> transition to p.o. 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 --CT Neck:Pharynx: The unenhanced radial soft tissues are grossly normal in appearance. The pharyngeal airway is widely patent. There is no evidence of mass lesion. The vocal cords are symmetric. The parapharyngeal fat is well maintained. The prevertebral/retropharyngeal soft tissues are within normal limits. The epiglottis is normal. Lymphadenopathy: No cervical lymphadenopathy is seen.The skeletal structures are osteopenic. Imaged portions of the calvarium at the skull base are within normal limits. The cervical spine appears intact noting multilevel spondylosis. Mild degenerative change is noted in the temporomandibular joints. 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 S/P chemotherapy and radiation therapy Received 3 cycles of cisplatin and subsequent carboplatin because of ototoxicity Last chemotherapy treatment was performed on 10/27/2023 -- Currently in remission (6) Near syncope: Secondary to pericardial effusion with tamponade and hypotension Stable Plan Other significant medical conditions are stable and as below: Hyperlipidemia, on statin Rx History of anal fistula/rectal abscess as per records Chronic anemia, hemoglobin better than baseline secondary to hemoconcentration Hyperglycemia ruled out DM Past tobacco abuse DVT prophylaxis No pharmacologic anticoagulation due to status post pericardiocentesis CODE STATUS Full Code Disposition Home Total Time Total Time Spent Total Time Spent (In Minutes): 57 minutes Discharge Plan Discharge Items Patient Disposition: Home - Self-Care Reason For Visit: sepsis, hypotension Discharge Diagnosis: Pericardial effusion Paroxysmal atrial fibrillation Cardiac tamponade Possible pericarditis Activity: Per Instructions section Sexual Activity: Wait until after follow-up appointment Non-emergency contact: Primary Care Provider and [employer] [employer] Call non-emergency contact if: you have any medication questions, your symptoms worsen, your pain is concerning for you and you have a fever Follow-up/Referrals: Matt Segura DO [[facility] [employer] [employer]] - (The Cardiology office will contact you for a follow up appointment.) Mary Kapadia PA-C [Primary Care Provider] - (Date & Time 04/06/2024 10:00 AM Provider Jeanette Cortes MD [facility] ) Diet: Heart Healthy Addtl Attending Provider Instructions: Follow-up with your primary care physician Mary Kapadia PA-C on 04/06/2024 10:00 AM 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 Segura with repeat echo in 1 week as advised --Complete the antibiotic doxycycline, prednisone tapering course as prescribed Prednisone tapering course Take prednisone 20 mg daily for 1 week, then 10 mg daily for 1 week, then 5 mg daily for 1 week and stop -- Quit drinking alcohol as advised Seek immediate medical attention if your symptoms reoccur or worsen Please take all medications as instructed on discharge list below. Please call if you have any questions or problems. You can reach a [facility] hospitalist on duty at [facility] 24 hours a day by calling [phone] Pending Studies at Discharge: Yes Studies:: Pericardial fluid studies Stand-Alone Forms: My [facility], Smoking Cessation Medications and DC Order Prescriptions: New doxycycline hyclate 100 mg Capsule 100 mg PO Q12H Qty: 10 0RF amiodarone 200 mg Tablet 200 mg PO BIDM Qty: 60 0RF thiamine HCl (vitamin B1) 100 mg Tablet 100 mg PO QAM Qty: 30 0RF pantoprazole 40 mg Tablet,Delayed Release (Dr/Ec) 40 mg PO QAM Qty: 30 0RF folic acid 1 mg Tablet 1 mg PO QAM Qty: 30 0RF colchicine [Colcrys] 0.6 mg Tablet 0.6 mg PO QAM Qty: 30 2RF metoprolol tartrate 25 mg Tablet 25 mg PO BID Qty: 60 0RF prednisone 10 mg tablet 10 mg PO DIRECTED Qty: 21 0RF Rx Instructions: Take prednisone 20 mg daily for 1 week, then 10 mg daily for 1 week, then 5 mg daily for 1 week and stop prednisone 5 mg tablet 5 mg PO DIRECTED Qty: 7 0RF Rx Instructions: Take prednisone 20 mg daily for 1 week, then 10 mg daily for 1 week, then 5 mg daily for 1 week and stop Continued atorvastatin 20 mg tablet 20 mg PO QPM lisinopril 5 mg tablet 5 mg PO QAM Discharge Orders: Discharge Order (Routine); Ordered 04/04/24 Ordered By: Asa Hawley Admission Data Admit Date/Time: 03/30/24 06:18 Attending Provider: Asa Hawley Admit Provider: José Antonio Nelson Primary Care Provider: Mary Kapadia Other Providers: José Antonio Nelson; Alannah Ace; Matt Segura; Saji Islas; Eduard Patterson; Erick Martinez; Tahir Savage; Sylvia Villagran; Lillian Liao; Romina Beltran; Alannah Arreola; Fernando Miles; Grabiel Robertson; Diann Vasquez; Rubi Suarez; Nadia Aguilar; Dani Mcdowell; Kirill Angulo; Mirna Hussein
[2024-04-04] MEDS ORDERED: AMIODARONE 200 MG TAB PO SCH (17:00)
[2024-04-04 19:17] LABS: Pericardial Fld,Total Protein 4.9 g/dL; Pericardial Fluid, Albumin 2.5 g/dL
== END 2024-04-04 17:00 | disposition home or self-care (01) | DRG 872 ==
LOC: ED 02:31 → EDINP 06:18 → SUATTDRO 06:18 → EDINP 09:54 → 1E 11:34 → 2E 04-04 12:59